=== PATIENT | female | born 1995 | race Caucasian/White ===

== ENCOUNTER 2020-02-27 14:06 | Emergency (ER) | payer SELFPAY ==
[~2020-02-27] VITALS: Ht 162.5 cm; Wt 68.0 kg
[~2020-02-27 14:06] MED LIST: DICY20TA10 PO; MESA10002 RC; PRD20T PO
--- NOTE | 2020-02-27 14:07 | NUR ---
Note sarah in EDM - 02/27/20 at 1420 by PMCCLURE AMB TO ROOM NOTICED ON 02/21 A RED AREA ON HER L LOWER ABD. THAT HAS GOT WORSE. AREA RED SWOLLEN WITH SM PIN SIZE DARK AREA.
--- OUTSIDE RECORDS SUMMARY | 2020-02-27 14:12 | XMS REPORT ---
Author Author Beverley GAMBLE Organization [facility] Address [address] [place] [address] Care Team Providers Care Grounds Caretaker Name Role Phone EDIE GAMBEL Unavailable PROBLEMS Type Condition ICD9-CM Code XRF51-EC Code Onset Dates Condition S tatus SNOMED Code Problem Irritable bowel syndrome with diarrhea K58.0 Active 728475939 Problem Family hx of colon cancer Z80.0 Acti ve 381372970 Problem Lumbosacral radiculopathy M54.17 Acti ve 1042260 ALLERGIES Substance Reaction Event Type Date Status Viibryd diarrhea Drug Allergy Dec, Active ENCOUNTERS Encounter Location Date Diagnosis [address], [place] [id number] Apr, Allergic contact dermatitis, unspecified trigger L23.[address], [place] [id number] Dec, Viral upper respiratory tract infection J06.[address], [place] [id number] Dec, Influenza J11.1 [facility] [address] [address] Oct, Acute gastroenteritis K52.[address], [place] [id number] Aug, Fever, unspecified R50.9 and Acute viral syndrome B34.9 [facility] [address] [address] May, Dental examination Z01.20 [facility] [address] [address] May, Mouth pain K13.[address] [place] [id number] February, Transient heat fatigue, initial encounte r T67.6XXA [facility] [address] [address] Jul, Acute non-recurrent maxillar y sinusitis J01.00 [facility] [id number] [place] [address], [place] [id number] Sep, [facility] [address], [place] [id number] Aug, Irritable bowel syndrome with diarrhea K 58.0 and Family hx of colon cancer Z80.0 [facility] [address] [place] [address] Jul, Urinary tract infection, sit e not specified N39.0 and Hematuria R31.9 [facility] [address] [place] [address] Jul, Pharyngitis, unspecified meg ology J02.9 [facility] [id number] [place] [address], [place] [id number] February, Lumbosacral radiculopathy M54.17 [facility] [id number] [place] [address], [place] [id number] February, Lumbago with sciatica, left side M54.42 and Lumbago with sciatica, right side M54.41 [facility] [id number] [place] [address] Jan, Dental examination Z01.20 [facility] [id number] [place] [id number] Oct, Acute suppurative otitis media of both e ars without spontaneous rupture of tympanic membranes, recurrence not specified H66.003 and Other infective otitis externa of right ear H60.391 [facility] [address] [id number] [place] [id number] Sep, Laceration of wrist, left S61.512A [facility] [address] [id number] [place] [id number] Sep, [facility] [address] [id number] [place] [id number] May, Dysthymic disorder 300.4 [facility] [address] [id number] [place] [id number] Mar, Sciatica 724.3 [facility] [address] [facility] [id number] [address] [place] [address] Jan, [facility] [address] [facility] [id number] [address] [place] [address] Jan, [facility] [address] [facility] [id number] [place] [id number] Oct, [facility] [address] [facility] [id number] [address] [place] [address] Oct, [facility] [address] [id number] [address] [place] [address] Sep, [facility] [address] [id number] [place] [id number] Sep, [facility] [address] [id number] [place] [id number] Aug, [facility] [address] [facility] [id number] [address] [place] [address] Aug, [facility] [address] [facility] [id number] [place] [id number] Jun, [facility] [address] [facility] [id number] [address] [place] [address] Jun, [facility] [address] [facility] [id number] [place] [id number] Jun, [facility] [address] [id number] [address] [place] [address] Jun, IMMUNIZATIONS No Known Immunizations SOCIAL HISTORY Never Assessed REASON FOR VISIT Fever, body aches, coughing starting yesterday Benson RN PLAN OF CARE Activity Details Follow Up prn Reason: VITAL SIGNS Height 64.5 in 2018-12-30 Weight 158.0 lbs 2018-12-30 Temperature 100.4 degrees Fahrenheit 2018-12-30 Heart Rate 100 bpm 2018-12-30 Respiratory Rate 20 2018-12-30 Oximetry 98 % 2018-12-30 BMI 26.70 kg/m2 2018-12-30 Blood pressure systolic 106 mmHg 2018-12-30 Blood pressure diastolic 68 mmHg 2018-12-30 MEDICATIONS Medication Instructions Dosage Frequency Start Date End Date Duration S tatus Tamiflu 75 MG Orally Twice a day 1 capsule 12h Dec, 5 day(s) Active RESULTS No Results PROCEDURES No Known procedures INSTRUCTIONS MEDICATIONS ADMINISTERED No Known Medications MEDICAL (GENERAL) HISTORY Type Description Date Medical History Colitis dx by colonoscopy age 17 Medical History bipolar disorder Medical History IBS Medical History 2017 EGD, reportedly unremarkable Medical History Other ulcerative colitis Medical History Enthesopathy of unspecified site Medical History Sciatica Medical History Dysthymic disorder Surgical History tonsillectomy and adenoidectomy Surgical History Tubes in ears x 4 Hospitalization History surgeries
--- OUTSIDE RECORDS SUMMARY | 2020-02-27 14:12 | XMS REPORT ---
Author Author Beverley SOLIS Organization [facility] Address [address] [place] [address] Care Team Providers Care Manager Education Name Role Phone SOLISWILLIE PATELSHASHA Unavailable PROBLEMS Type Condition ICD9-CM Code GQS22-BE Code Onset Dates Condition S tatus SNOMED Code Problem Pain in joint, forearm 719.43 Active 854719681 Problem Other ulcerative colitis 556.8 Activ e 28001944 Problem Irritable bowel syndrome with diarrhea K58.0 Active 243134691 Problem Family hx of colon cancer Z80.0 Acti ve 201478929 Problem Sciatica 724.3 Active 11389769 Problem Enthesopathy of unspecified site 726.90 Active 73142379 Problem Lumbosacral radiculopathy M54.17 Acti ve 9878073 Problem Dysthymic disorder 300.4 Active 7 0240387 ALLERGIES Substance Reaction Event Type Date Status Viibryd diarrhea Drug Allergy May, Active ENCOUNTERS Encounter Location Date Diagnosis [facility] [id number] [address] [place] [address] May, Dental examination Z01.20 [facility] [address] [id number] [address] [place] [address] May, Mouth pain K13.79 [facility] [address] [id number] [place] [id number] February, Transient heat fatigue, initial encounte r T67.6XXA [facility] [address] [facility] [id number] [address] [place] [address] Jul, Acute non-recurrent maxillar y sinusitis J01.00 [facility] [address] [id number] [place] [id number] Sep, [facility] [id number] [place] [address], [place] [id number] Aug, Irritable bowel syndrome with diarrhea K 58.0 and Family hx of colon cancer Z80.0 [facility] [address] [address] Jul, Urinary tract infection, sit e not specified N39.0 and Hematuria R31.9 [facility] [address] [address] Jul, Pharyngitis, unspecified meg ology J02.9 [facility] [id number] [place] [address], [place] [id number] February, Lumbosacral radiculopathy M54.17 [facility] [address], [place] [id number] February, Lumbago with sciatica, left side M54.42 and Lumbago with sciatica, right side M54.41 [facility] [address] [address] Jan, Dental examination Z01.20 [place] [id number] [place] [address], [place] [id number] Oct, Acute suppurative otitis media of both e ars without spontaneous rupture of tympanic membranes, recurrence not specified H66.003 and Other infective otitis externa of right ear H60.391 [facility] [id number] [place] [address], [place] [id number] Sep, Laceration of wrist, left S61.512A [facility] [id number] [place] [address], [place] [id number] Sep, [place] [address], [place] [id number] May, Dysthymic disorder 300.4 [facility] [address], [place] [id number] Mar, Sciatica 724.3 [facility] [address] [address] Jan, [facility] [address] [id number] [address] [place] [address] Jan, [facility] [address] [id number] [place] [id number] Oct, [facility] [address] [id number] [address] [place] [address] Oct, [facility] [address] [id number] [address] [place] [phone] Sep, [facility] [address] [id number] [place] [id number] Sep, [facility] [address] [id number] [place] [id number] Aug, [facility] [address] [id number] [address] [place] [address] Aug, [facility] [address] [id number] [place] [id number] Jun, [facility] [address] [id number] [address] [place] [phone] Jun, [facility] [address] [id number] [place] [id number] Jun, [facility] [address] [id number] [address] [place] [phone] Jun, IMMUNIZATIONS No Known Immunizations SOCIAL HISTORY Never Assessed REASON FOR VISIT pain referral from walk-in PLAN OF CARE Activity Details Follow Up prn Reason: VITAL SIGNS Height 64.5 in 2018-06-20 Blood pressure systolic 98 mmHg 2018-06-20 Blood pressure diastolic 62 mmHg 2018-06-20 MEDICATIONS No Known Medications RESULTS No Results PROCEDURES Procedure Date Ordered Result Body Site INTRAORL-PERIAPICAL 1 FILM 32241 Jun 20, 2018 BITEWING - SINGLE FILM Jun 20, 2018 Billing Notes on claim Jun 20, 2018 SCREENING OF A PATIENT Jun 20, 2018 INSTRUCTIONS MEDICATIONS ADMINISTERED No Known Medications MEDICAL (GENERAL) HISTORY Type Description Date Medical History Colitis dx by colonoscopy age 17 Medical History bipolar disorder Medical History IBS Surgical History tonsillectomy and adenoidectomy Surgical History Tubes in ears x 4 Hospitalization History surgeries
--- OUTSIDE RECORDS SUMMARY | 2020-02-27 14:12 | XMS REPORT ---
Author Author Beverley GAMBLE Organization [facility] Address [address] [place] [address] Care Team Providers Care Emergency Management Program Specialist Name Role Phone EDIE GAMBLE Unavailable PROBLEMS Type Condition ICD9-CM Code GDT65-HQ Code Onset Dates Condition S tatus SNOMED Code Problem Family hx of colon cancer Z80.0 Acti ve 767194462 Problem Irritable bowel syndrome with diarrhea K58.0 Active 667821840 Problem Lumbosacral radiculopathy M54.17 Acti ve 8580910 ALLERGIES No Information ENCOUNTERS Encounter Location Date Diagnosis [address], [place] [id number] Apr, Allergic contact dermatitis, unspecified trigger L23.9 [facility] [address], [place] [id number] Dec, Viral upper respiratory tract infection J06.[address], [place] [id number] Dec, Influenza J11.1 [facility] [address] [address] Oct, Acute gastroenteritis K52.[address], [place] [id number] Aug, Fever, unspecified R50.9 and Acute viral syndrome B34.9 [facility] [address] [id number] [address] [place] [phone] May, Dental examination Z01.20 [facility] [address] [id number] [address] [place] [address] May, Mouth pain K13.79 [facility] [address], [place] [id number] February, Transient heat fatigue, initial encounte r T67.6XXA [facility] [address] [id number] [address] [place] [address] Jul, Acute non-recurrent maxillar y sinusitis J01.00 [facility] [address] [facility] [id number] [place] [id number] Sep, [facility] [address], [place] [id number] Aug, Irritable bowel syndrome with diarrhea K 58.0 and Family hx of colon cancer Z80.0 [facility] [address] [phone] Jul, Urinary tract infection, sit e not specified N39.0 and Hematuria R31.9 [facility] [address] [id number] [address] [place] [address] Jul, Pharyngitis, unspecified meg ology J02.9 [facility] [id number] [place] [address], [place] [id number] February, Lumbosacral radiculopathy M54.17 [facility] [address], [place] [id number] February, Lumbago with sciatica, left side M54.42 and Lumbago with sciatica, right side M54.41 [facility] [address] [facility] [id number] [address] [place] [phone] Jan, Dental examination Z01.20 [facility] [id number] [place] [address], [place] [id number] Oct, Acute suppurative otitis media of both e ars without spontaneous rupture of tympanic membranes, recurrence not specified H66.003 and Other infective otitis externa of right ear H60.391 [facility] [address] [id number] [place] [id number] Sep, Laceration of wrist, left S61.512A [facility] [id number] [place] [address], [place] [id number] Sep, [facility] [address] [id number] [place] [id number] May, Dysthymic disorder 300.4 [facility] [address] [id number] [place] [id number] Mar, Sciatica 724.3 [facility] [address] [facility] [id number] [address] [place] [phone] Jan, [facility] [address] [facility] [id number] [address] [place] [phone] Jan, [facility] [address] [id number] [place] [id number] Oct, [facility] [address] [facility] [id number] [address] [place] [phone] Oct, [facility] [address] [facility] [id number] [address] [place] [phone] Sep, [facility] [address] [id number] [place] [id number] Sep, [facility] [address] [id number] [place] [id number] Aug, [facility] [address] [facility] [id number] [address] [place] [phone] Aug, [facility] [address] [id number] [place] [id number] Jun, [facility] [address] [facility] [id number] [address] [place] [phone] Jun, [facility] [address] [id number] [place] [id number] Jun, [facility] [address] [facility] [id number] [address] [place] [phone] Jun, IMMUNIZATIONS No Known Immunizations SOCIAL HISTORY Never Assessed REASON FOR VISIT PLAN OF CARE VITAL SIGNS Height 64.5 in 2014-07-06 Weight 143.31 lbs 2014-07-06 Temperature 98 degrees Fahrenheit 2014-07-06 Heart Rate 76 bpm 2014-07-06 Respiratory Rate 10 2014-07-06 Blood pressure systolic 90 mmHg 2014-07-06 Blood pressure diastolic 60 mmHg 2014-07-06 MEDICATIONS No Known Medications RESULTS No Results PROCEDURES Procedure Date Ordered Result Body Site X-RAY EXAM OF WRIST Jul 06, 2014 X-RAY EXAM OF FOREARM Jul 06, 2014 INSTRUCTIONS MEDICATIONS ADMINISTERED No Known Medications MEDICAL (GENERAL) HISTORY Type Description Date Medical History Colitis dx by colonoscopy age 17 Medical History bipolar disorder Medical History IBS Medical History 2016 EGD, reportedly unremarkable Medical History Other ulcerative colitis Medical History Enthesopathy of unspecified site Medical History Sciatica Medical History Dysthymic disorder Surgical History tonsillectomy and adenoidectomy Surgical History Tubes in ears x 4 Hospitalization History surgeries
--- OUTSIDE RECORDS SUMMARY | 2020-02-27 14:12 | XMS REPORT ---
Author Author Beverley Rose Organization [facility] Address [address] [place] [address] Care Team Providers Care Golf Superintendent Name Role Phone SHANTELL Rose Unavailable PROBLEMS Type Condition ICD9-CM Code UMT42-CS Code Onset Dates Condition S tatus SNOMED Code Problem Family hx of colon cancer Z80.0 Acti ve 834536328 Problem Irritable bowel syndrome with diarrhea K58.0 Active 227828346 Problem Lumbosacral radiculopathy M54.17 Acti ve 7731858 ALLERGIES No Information ENCOUNTERS Encounter Location Date Diagnosis [address], [place] [id number] Apr, Allergic contact dermatitis, unspecified trigger L23.[address], [place] [id number] Dec, Viral upper respiratory tract infection J06.[address], [place] [id number] Dec, Influenza J11.1 [facility] [address] [address] Oct, Acute gastroenteritis K52.[address], [place] [id number] Aug, Fever, unspecified R50.9 and Acute viral syndrome B34.9 [facility] [address] [address] May, Dental examination Z01.20 [facility] [address] [id number] [address] [place] [address] May, Mouth pain K13.[address], [place] [id number] February, Transient heat fatigue, initial encounte r T67.6XXA [facility] [address] [address] Jul, Acute non-recurrent maxillar y sinusitis J01.00 [facility] [address] [id number] [place] [id number] Sep, [facility] [address], [place] [id number] Aug, Irritable bowel syndrome with diarrhea K 58.0 and Family hx of colon cancer Z80.0 [facility] [address] [address] Jul, Urinary tract infection, sit e not specified N39.0 and Hematuria R31.9 [facility] [address] [address] Jul, Pharyngitis, unspecified meg ology J02.9 [facility] [address] [id number] [place] [id number] February, Lumbosacral radiculopathy M54.17 [facility] [id number] [place] [address], [place] [id number] February, Lumbago with sciatica, left side M54.42 and Lumbago with sciatica, right side M54.41 [facility] [address] [id number] [address] [place] [address] Jan, Dental examination Z01.20 [facility] [address] [id number] [place] [id number] Oct, Acute suppurative otitis media of both e ars without spontaneous rupture of tympanic membranes, recurrence not specified H66.003 and Other infective otitis externa of right ear H60.391 [facility] [address] [id number] [place] [id number] Sep, Laceration of wrist, left S61.512A [facility] [address] [id number] [place] [id number] Sep, [facility] [place] [address] [id number] [place] [id number] May, Dysthymic disorder 300.4 [facility] [place] [address] [id number] [place] [id number] Mar, Sciatica 724.3 [facility] [address] [facility] [id number] [address] [place] [address] Jan, [facility] [address] [facility] [id number] [address] [place] [phone] Jan, [facility] [address] [id number] [place] [id number] Oct, [facility] [address] [facility] [id number] [address] [place] [phone] Oct, [facility] [address] [facility] [id number] [address] [place] [phone] Sep, [facility] [address] [id number] [place] [id number] Sep, [facility] [address] [id number] [place] [id number] Aug, [facility] [address] [facility] [id number] [address] [place] [phone] Aug, [facility] [address] [facility] [id number] [place] [id number] Jun, [facility] [address] [facility] [id number] [address] [place] [phone] Jun, [facility] [address] [facility] [id number] [place] [id number] Jun, [facility] [address] [facility] [id number] [address] [place] [address] Jun, IMMUNIZATIONS No Known Immunizations SOCIAL HISTORY Never Assessed REASON FOR VISIT PLAN OF CARE VITAL SIGNS Height 64.5 in 2014-07-07 Weight 143 lbs 2014-07-07 Temperature 97.9 degrees Fahrenheit 2014-07-07 Heart Rate 88 bpm 2014-07-07 Respiratory Rate 20 2014-07-07 Blood pressure systolic 114 mmHg 2014-07-07 Blood pressure diastolic 76 mmHg 2014-07-07 MEDICATIONS No Known Medications RESULTS No Results PROCEDURES No Known procedures [...]
--- OUTSIDE RECORDS SUMMARY | 2020-02-27 14:12 | XMS REPORT ---
Author Author Beverley Nichols Doctor Organization [facility] Address Unknown Phone Unavailable Care Team Providers Care Dental Equipment Mechanic Name Role Phone Migration, Doctor Unavailable Unavailable PROBLEMS Type Condition ICD9-CM Code [id number] Code Onset Dates Condition S tatus SNOMED Code Problem Other ulcerative colitis 556.8 Activ e 11988845 Problem Pain in joint, forearm 719.43 Active 913821245 Problem Family hx of colon cancer Z80.0 Acti ve 536813301 Problem Irritable bowel syndrome with diarrhea K58.0 Active 127623022 Problem Enthesopathy of unspecified site 726.90 Active 39235573 Problem Sciatica 724.3 Active 27045192 Problem Dysthymic disorder 300.4 Active 7 3157378 Problem Lumbosacral radiculopathy M54.17 Acti ve [id number] ALLERGIES No Information ENCOUNTERS Encounter Location Date Diagnosis [place] [id number] [place] [address], [place] [id number] Dec, Viral upper respiratory tract infection J06.[address], [place] [id number] Dec, Influenza J11.1 [facility] [address] [address] Oct, Acute gastroenteritis K52.9 [place] [id number] [place] [address], [place] [id number] Aug, Fever, unspecified R50.9 and Acute viral syndrome B34.9 [facility] [address] [address] May, Dental examination Z01.20 [facility] [address] [place] [id number] [place] [phone] May, Mouth pain K13.79 [facility] [address], [place] [id number] February, Transient heat fatigue, initial encounte r T67.6XXA [facility] [address] [address] Jul, Acute non-recurrent maxillar y sinusitis J01.00 [facility] [address] [id number] [place] [id number] Sep, [facility] [address], [place] [id number] Aug, Irritable bowel syndrome with diarrhea K 58.0 and Family hx of colon cancer Z80.0 [facility] [address] [address] Jul, Urinary tract infection, sit e not specified N39.0 and Hematuria R31.9 [facility] [address] [address] Jul, Pharyngitis, unspecified meg ology J02.9 [facility] [address] [place] [id number] [place] [address], [place] [id number] February, Lumbosacral radiculopathy M54.17 [facility] [address] [id number] [place] [address], [place] [id number] February, Lumbago with sciatica, left side M54.42 and Lumbago with sciatica, right side M54.41 [facility] [address] [place] [id number] [place] [phone] Jan, Dental examination Z01.20 [facility] [address] [id number] [place] [id number] Oct, Acute suppurative otitis media of both e ars without spontaneous rupture of tympanic membranes, recurrence not specified H66.003 and Other infective otitis externa of right ear H60.391 [facility] [address] [id number] [place] [id number] Sep, Laceration of wrist, left S61.512A [facility] [address] [place] [id number] [place] [address], [place] [id number] Sep, [facility] [address] [facility] [id number] [place] [id number] May, Dysthymic disorder 300.4 [facility] [address] [facility] [id number] [place] [id number] Mar, Sciatica 724.3 [facility] [address] [facility] [id number] [address] [place] [phone] Jan, [facility] [address] [facility] [id number] [address] [place] [phone] Jan, [facility] [address] [facility] [id number] [place] [id number] Oct, [facility] [address] [facility] [id number] [address] [place] [phone] Oct, [facility] [address] [place] [id number] [place] [phone] Sep, [facility] [address] [facility] [id number] [place] [id number] Sep, [facility] [address] [facility] [id number] [place] [id number] Aug, [facility] [address] [facility] [id number] [address] [place] [phone] Aug, [facility] [address] [facility] [id number] [place] [id number] Jun, [facility] [address] [facility] [id number] [address] [place] [phone] Jun, [facility] [address] [facility] [id number] [place] [id number] Jun, [facility] [address] [place] [id number] [place] [phone] Jun, IMMUNIZATIONS No Known Immunizations SOCIAL HISTORY Never Assessed REASON FOR VISIT [place] VITAL SIGNS MEDICATIONS Medication Instructions Dosage Frequency Start Date End Date Duration S sharyn Sulfasalazine 500 mg 1 tablet by Oral ro inez 4 times per day 2 tabs daily x 7 days, then increas to 4 times daily Sep, Active RESULTS No Results PROCEDURES No Known procedures INSTRUCTIONS MEDICATIONS ADMINISTERED No Known Medications MEDICAL (GENERAL) HISTORY Type Description Date Medical History Colitis dx by colonoscopy age 17 Medical History bipolar disorder Medical History IBS Medical History 2016 EGD, reportedly unremarkable Surgical History tonsillectomy and adenoidectomy Surgical History Tubes in ears x 4 Hospitalization History surgeries
--- OUTSIDE RECORDS SUMMARY | 2020-02-27 14:12 | XMS REPORT ---
Author Author Beverley Nichols Doctor Organization [facility] Address Unknown Phone Unavailable Care Team Providers Care Respiratory Therapy Assistant Name Role Phone Migration, Doctor Unavailable Unavailable PROBLEMS Type Condition ICD9-CM Code RLD53-PI Code Onset Dates Condition S tatus SNOMED Code Problem Family hx of colon cancer Z80.0 Acti ve 874722479 Problem Irritable bowel syndrome with diarrhea K58.0 Active 839330695 Problem Lumbosacral radiculopathy M54.17 Acti ve [id number] ALLERGIES No Information ENCOUNTERS Encounter Location Date Diagnosis [address], [place] [id number] Apr, Allergic contact dermatitis, unspecified trigger L23.[address], [place] [id number] Dec, Viral upper respiratory tract infection J06.[address], [place] [id number] Dec, Influenza J11.1 [facility] [address] [place] [phone] Oct, Acute gastroenteritis K52.[address], [place] [id number] Aug, Fever, unspecified R50.9 and Acute viral syndrome B34.9 [facility] [address] [address] May, Dental examination Z01.20 [facility] [address] [address] May, Mouth pain K13.[address], [place] [id number] February, Transient heat fatigue, initial encounte r T67.6XXA [facility] [address] [facility] [id number] [address] [place] [id number] Jul, Acute non-recurrent maxillar y sinusitis J01.00 [facility] [address] [place] [id number] [place] [address], [place] [id number] Sep, [facility] [address] [facility] [id number] [place] [id number] Aug, Irritable bowel syndrome with diarrhea K 58.0 and Family hx of colon cancer Z80.0 [facility] [address] [id number] Jul, Urinary tract infection, sit e not specified N39.0 and Hematuria R31.9 [facility] [address] [facility] [id number] [address] [place] [phone] Jul, Pharyngitis, unspecified meg ology J02.9 [facility] [address], [place] [id number] February, Lumbosacral radiculopathy M54.17 [facility] [address], [place] [id number] February, Lumbago with sciatica, left side M54.42 and Lumbago with sciatica, right side M54.41 [facility] [address] [place] [id number] [address] [place] [phone] Jan, Dental examination Z01.20 [facility] [address] [place] [id number] [place] [address], [place] [id number] Oct, Acute suppurative otitis media of both e ars without spontaneous rupture of tympanic membranes, recurrence not specified H66.003 and Other infective otitis externa of right ear H60.391 [facility] [address] [place] [id number] [place] [address], [place] [id number] Sep, Laceration of wrist, left S61.512A [facility] [address] [id number] [place] [id number] Sep, [facility] [address], [place] [id number] May, Dysthymic disorder 300.4 [facility] [address] [facility] [id number] [place] [id number] Mar, Sciatica 724.3 [facility] [address] [facility] [id number] [address] [place] [phone] Jan, [facility] [address] [facility] [id number] [address] [place] [phone] Jan, [facility] [address] [facility] [id number] [place] [id number] Oct, [facility] [address] [facility] [id number] [address] [place] [phone] Oct, [facility] [address] [facility] [id number] [address] [place] [phone] Sep, [facility] [address] [facility] [id number] [place] [id number] Sep, [facility] [address] [facility] [id number] [place] [id number] Aug, [facility] [address] [facility] [id number] [address] [place] [phone] Aug, [facility] [address] [facility] [id number] [place] [id number] Jun, [facility] [address] [facility] [id number] [address] [place] [phone] Jun, [facility] 120 [facility] [id number] [place] [id number] Jun, [facility] [address] [facility] [id number] [address] [place] [phone] Jun, IMMUNIZATIONS No Known Immunizations SOCIAL HISTORY Never Assessed REASON FOR VISIT PLAN OF CARE VITAL SIGNS MEDICATIONS No Known Medications RESULTS No Results PROCEDURES No Known procedures INSTRUCTIONS MEDICATIONS ADMINISTERED No Known Medications MEDICAL (GENERAL) HISTORY Type Description Date Medical History Colitis dx by colonoscopy age 17 Medical History bipolar disorder Medical History IBS Medical History 2017 EGD, reportedly unremarkable Medical History Other ulcerative colitis Medical History Other ulcerative colitis Medical History Enthesopathy of unspecified site Medical History Sciatica Medical History Dysthymic disorder Surgical History tonsillectomy and adenoidectomy Surgical History Tubes in ears x 4 Hospitalization History surgeries
--- OUTSIDE RECORDS SUMMARY | 2020-02-27 14:12 | XMS REPORT ---
Author Author [employer]. Organization [employer] Address [address] [address] Care Team Providers Care Fruit [employer] Farm Manager Name Role Phone EDIE GAMBLE Unavailable [facility] Unavailable LENNOX CANTU Unavailable Unavailable EDIE GAMBLE Unavailable Unavailable EDIE GAMBLE Unavailable EDIE GAMBLE Unavailable SHASHA SOLIS Unavailable EVARISTO GARRIDO Unavailable Migration, Doctor Unavailable Unavailable Migration, Doctor Unavailable Unavailable EDIE GAMBLE Unavailable Unavailable EDIE GAMBLE Unavailable SHANTELL Rose Unavailable EDIE GAMBLE Unavailable SHANTELL Rose Unavailable Migration, Doctor Unavailable Unavailable NIKOLE HICKMAN Unavailable Unavailable Unavailable Allergies The data below is from unstructured sourcesNo known allergies.No Known Allergies No Known Allergies Unknown Allergies Unknown Allergies No Information No Information No Information No Information No Information No Information No Information No Information No Information No Information No Information No Information Medications Medication Ingredient Drug Dose Dates Status Sig Sig Care Class(es) (Normalized) (Original) Provid er amoxicillin amoxicillin Penicillin- 500 mg 06-20-20 Active no Amoxicillin no 500 mg oral Translation class 18 - information 500 mg name capsule (1 s: [ Antibacteri 06-27-20 Orally every (no source.) Amoxicillin al 18 8 hrs 1 phone) 500 mg] capsule 8h May, May, 07 days Active cetirizine Cetirizine Histamine-1 10 mg 01-14-20 Active take 1 Zyrtec no hydrochlori Translation Receptor 19 tablet by Allergy 10 name de 10 mg s: [ Zyrtec Antagonist mouth once mg Orally (no oral tablet Allergy 10 daily Once a day 1 phone) (1 source.) mg] tablet 24h 19 Dec, 2018 30 day(s) Active oseltamivir Oseltamivir Neuraminida 75 mg 12-31-19 Active take 1 Tamiflu 75 no 75 mg oral Translation se 19 capsule by MG Orally n denny capsule (1 s: [ Inhibitor mouth twice Twice a day (no source.) Tamiflu 75 daily 1 capsule phone) MG] 12h Dec, 5 day(s) Active sulfaSALAzi sulfaSALAzi Aminosalicy 500 mg 10-01-20 Active no Sulfasalazin no ne 500 mg ne late 14 information e 500 mg 1 nam e oral tablet tablet by (no (1 source.) Oral route 4 phone) times per day 2 tabs daily x 7 days, then increas to 4 times daily Sep, Active Problems Problem Normalized Date of Normalized Normalized Provider Fac ility Classification Problem(s) Problem Problem Problem Sta tus Onset/Resoluti Duration on Other upper Acute Episodic Active [facility] respiratory maxillary [facility] infections (20 sinusitis, of [place] sources.) unspecified [place] ([address]) Translations: [ - Acute non-recurrent maxillary sinusitis J01.00, - Pharyngitis, unspecified etiology J02.9, - Acute non-recurrent maxillary sinusitis J01.00, - Pharyngitis, unspecified etiology J02.9, - Viral upper respiratory tract infection J06.9] Disorders of Encounter for Episodic Active [facility] teeth and jaw dental [address] [facility] (1 source.) examination of [facility] and [facility] ([address]) without abnormal findings Translations: [ - Dental examination Z01.20] Other Enthesopathy Episodic Active EVARISTO GARRIDO [facility] ity connective Translations: [address] [facility] tissue disease [ Enthesopathy of [facility] (4 sources.) of unspecified [place] ([address]796) site, Enthesopathy of unspecified site] Residual Family history Episodic Active Doctor [facility] ty codes; of malignant [facility] unclassified neoplasm of of [facility] (8 sources.) digestive [place] ([address]004) organs Translations: [ - Family hx of colon cancer Z80.0] Fever of Fever, Episodic Active Doctor Community unknown origin unspecified Migration [facility] (8 sources.) Translations: of [facility] [ - Fever, [place] ([address]246) unspecified R50.9] Other injuries Heat fatigue, Episodic Active [facility] and conditions transient, [address] [place] [address] Center due to initial of [facility] external encounter [place] ([address]) causes (11 Translations: sources.) [ - Transient heat fatigue, initial encounter T67.6XXA, - Transient heat fatigue, initial encounter T67.6XXA] Genitourinary Hematuria, Episodic Active [facility] mmunity symptoms and unspecified [address] [place] [address] ill-defined Translations: of [facility] conditions (12 [ - Hematuria [place] (43662) sources.) R31.9, - Hematuria R31.9, - Blood in urine R31.9] Influenza (8 Influenza due Episodic Active Doctor Commu nity sources.) to [facility] unidentified of [facility] influenza [place] ([address]94) virus with other respiratory manifestations Translations: [ - Influenza J11.1] Noninfectious Noninfective Episodic Active Doctor Commu nity gastroenteriti gastroenteriti [facility] s (8 sources.) s and colitis, of [facility] unspecified [place] ([address]010) Translations: [ - Acute gastroenteriti s K52.9] Diseases of Other lesions Episodic Active [facility] GARRIDO Com [facility] mouth; of oral mucosa [id number] [place] [address] excluding Translations: of [facility] dental (10 [ - Mouth pain [place] (81388) sources.) K13.79, - Mouth pain K13.79] Urinary tract Urinary tract Episodic Active [facility] infections (12 infection, [id number] [place] [address] Center sources.) site not of [facility] specified [place] ([address]64) Translations: [ - Urinary tract infection, site not specified N39.0, - Urinary tract infection, site not specified N39.0] Viral Viral Episodic Active Doctor [facility] infection (8 infection, [facility] sources.) unspecified of [facility] Translations: [place] ([address]67) [ - Acute viral syndrome B34.9] Procedures Procedure Normalized Procedure Procedure Result Performer Facility Date 06-20-2018 Billing Notes on claim no information no name (no p roseann) [facility] (49397) 06-20-2018 Dental bitewing single no information no name (no p roseann) [facility] (54330) 06-20-2018 Intraoral periapical no information no name (no marisol ne) [facility] (56668) 07-06-2014 Radex forearm 2 views no information no name (no ph one) [facility] (49773) 07-06-2014 Radex wrist 2 views no information no name (no phon e) [facility] (74263) 06-20-2018 Screening of a patient no information no name (no p roseann) [facility] (55522) Immunizations The data below is from unstructured sources No Known ImmunizationsNo immunization records.No immunization records. No Known Immunizations No Known Immunizations No Known Immunizations No Known Immunizations No Known Immunizations No Known Immunizations No Known Immunizations No Known Immunizations No Known Immunizations No Known Immunizations No Known Immunizations No Known Immunizations No Known Immunizations No Known Immunizations No Known Immunizations No Known Immunizations No Known Immunizations No Known Immunizations No Known Immunizations No Known Immunizations No Known Immunizations No Known Immunizations No Known Immunizations No Known Immunizations Results Test Name Value Interpretation Reference Range Date Time Fa cility (Normalized) (Normalized) (Medline Reference) No panel information on null Control no information (no code) [facility] ([id number]) Exp date 08/2018 (no code) [facility] (26736) Lot # [id number] (no code) [facility] (10359) No panel information on 2019-12-25 Bacteria SEE NOTE (A) [facility] identified Cx [facility] Nom (U) [facility] (47449) BLO 3+ (no code) [facility] (75786) KET 2021-01~cloudy~p (no code) [facility] ink~none~negativ [facility] e~negative~negat [facility] mariella (69529) NELY no information (no code) [facility] (21201) Lot # [id number] (no code) [facility] (45006) pH (Bld) 6.0 [pH] (no code) 7.38 - 7.42 [pH] Communit y [facility] (16466) Protein (U) 2+ (no code) [facility] [Mass/Vol] [facility] (84434) SG 1.010 (no code) [facility] (17361) URO 0.2 (no code) [facility] (03333) No panel information on 2018-09-02 Control no information (no code) [facility] (36313) Exp date 02/18/21 (no code) [facility] (34181) Exp date 08/03/20 (no code) [facility] (60355) Lot # [id number] (no code) [facility] (94507) Lot # [id number] (no code) [facility] (33434) Vital Signs Vital Sign Value Interpretation Reference Date Time Care [facility] ider Facility (Normalized) (Normalized) Range BMI (Body Mass 26.7 kg/m2 (no code) 15 - 25 kg/m2 12-30-2018 DONOVAN COLLAZOS Community Index) 15:20-0500 07302 [facility] (84867) BMI (Body Mass 25.18 kg/m2 (no code) 15 - 25 kg/m2 06-20-2018 Suki GARRIDO Community Index) 14:10-0400 71259 [facility] (04327) BMI (Body Mass 25.92 kg/m2 (no code) 15 - 25 kg/m2 03-04-2018 Benito GAMBLE Community Index) 15:40-0400 87665 [facility] (83896) Body height 163.83 cm (no code) cm 01-13-2019 NIKOLE HICKMAN Community 13:40-0400 62006 [facility] (63634) Body mass 26.36 kg/m2 (no code) 15 - 25 kg/m2 01-13-2019 NIKOLE RAMIREZ Community index (BMI) 13:40-0400 20395 [facility] [Ratio] [facility] (39122) Body 98.2 [degF] (no code) 97.8 - 99.0 01-13-2019 NIKOLE SANDOVAL N [facility] temperature [degF] 13:40-[address] [facility] (40274) Body 100.4 [degF] (no code) 97.8 - 99.0 12-30-2018 EDIE RODRIGUEZ [facility] Temperature [degF] 15:20-0500 73994 [facility] (09774) Body 97.6 [degF] (no code) 97.8 - 99.0 06-20-2018 EVARISTO MENDOZA [facility] Temperature [degF] 14:10-0400 17463 [facility] (08120) Body 97.6 [degF] (no code) 97.8 - 99.0 03-04-2018 EDIE ROSE [facility] Temperature [degF] 15:40-0400 94041 [facility] (37887) Body 97.7 [degF] (no code) 97.8 - 99.0 10-01-2014 [facility] Temperature [degF] 08:55-[address] ([address]363) Body 97.9 [degF] (no code) 97.8 - 99.0 07-07-2014 [facility] Temperature [degF] 10:24-[address] (31231) Body 98 [degF] (no code) 97.8 - 99.0 07-06-2014 EDIE BURTON [facility] Temperature [degF] 14:34-[address] [facility] (46095) Body weight 70.76 kg (no code) kg 01-13-2019 NIKOLEDedra ORTEZON [facility] 13:40-0400 47724 [facility] (74757) Body weight 71.67 kg (no code) kg 12-30-2018 EDIE La [facility] 15:20-0500 78876 [facility] (06816) Body weight 64.86 kg (no code) kg 10-01-2014 SHANTELL Com munity 08:55-0500 [facility] [address] of [facility] (07449) Body weight 64.86 kg (no code) kg 07-07-2014 SHANTELL Com munity 10:24-0400 [facility] 65717 of [facility] (03713) Body weight 65.01 kg (no code) kg 07-06-2014 [facility] 14:34-[address] [place] [address] (04878) Height 163.83 cm (no code) cm 12-30-2018 [facility] 15:20-[address] [place] [address] (77556) Height 163.83 cm (no code) cm 06-20-2018 EVARISTO jones 14:45-[id number] [place] [address] (80198) Height 163.83 cm (no code) cm 03-04-2018 [facility] 15:40-[address] [place] [address] (39597) Height 163.83 cm (no code) cm 10-01-2014 SHANTELL Commu nity 08:55-0500 [place] [id number] of [facility] (90124) Height 163.83 cm (no code) cm 07-07-2014 SHANTELL Commu nity 10:240400 [place] [address] of [facility] (04462) Height 163.83 cm (no code) cm 07-06-2014 [facility] 14:34-[address] [place] [address] (10866) Oxygen 96 % (no code) 95 - 100 % 01-13-2019 NIKOLE jones saturation in 13:40-[address] [place] [address] Arterial blood [facility] by Pulse [place] (37417) oximetry Pulse Oximetry 98 % (no code) 95 - 100 % 12-30-2018 [facility] 15:200500 [address] [place] [address] ([id number]) Weight 67.59 kg (no code) kg 06-20-2018 EVARISTO GARRIDO Dc mmunity 14:47-6973 34513 [facility] (13219) Weight 69.58 kg (no code) kg 03-04-2018 EDIE GAMBLE [facility] 15:400400 86186 [facility] (36398) Interventions No Information Plan of Treatment The data below is from unstructured sources Discharge Date 10/16/16 12:55pm Instructions/Education Provided COLO NOSCOPY Prescriptions See Medication Section Activity Details Follow Up prn Reason: Activity Details Follow Up w/ dental Reason:mouth mehul n Activity Details Follow Up prn Reason: Goals No Information Social History No Information Functional Status The data below is from unstructured sourcesNo functional status results. Mental Status No Information Encounters Encounter Normalized Encounter Encounter Diagnosis Care Provi karly Organization Date Type 04-27-2019 (ACUTE) Acute Visit Allergic contact NIKOLE HICKMAN (n o phone) [employer] [facility] (no - dermatitis, phone) 04-27-2019 unspecified cause - 04-27-2019 01-13-2019 (ACUTE) Acute Visit Acute upper NIKOLEDedra HICKMAN (no marisol ne) [employer] [facility] (no - respiratory infection, phone) 01-13-2019 unspecified - 01-13-2019 12-30-2018 (ACUTE) Acute Visit Influenza due to EDIE GAMBLE (no [facility] (no - unidentified influenza phone) phone) 12-30-2018 virus with other - respiratory 12-30-2018 manifestations 11-16-2015 (ACUTE) Acute Visit Acute suppurative EDIE La (no [facility] (no - otitis media without phone) phone) 11-16-2015 spontaneous rupture of - ear drum, bilateral 11-16-2015 10-25-2015 (ACUTE) Acute Visit Laceration without LENNOX GILMOR E CASHANNAMARIE [facility] (no - foreign body of left (no phone) LENNOX phone) 10-25-2015 wrist, initial ZAryGIPREMA MENJIVAR ( no - encounter phone) 10-25-2015 03-22-2016 ([facility]) Chronic Health Radiculopathy, EDIE GAMBLE (no [facility] (no - Maintenance lumbosacral region phone) phone) 03-22-2016 - 03-22-2016 03-08-2016 ([facility]) Chronic Health Lumbago with sciatica, EDIE GAMBLE (no [facility] (no - Maintenance left side phone) phone) 03-08-2016 - 03-08-2016 06-20-2018 (D-INT DENT) DENTAL Encounter for dental SHASHA SOLIS ([facility] [place] INTEGRATED VISIT examination and phone) (no p roseann) 06-20-2018 cleaning without - abnormal findings 06-20-2018 01-31-2016 (D-PAIN/MEJIA) Pain/MEJIA Encounter for dental JASMINE Montoya (no [facility] - examination and phone) (no phone) 01-31-2016 cleaning without - abnormal findings 01-31-2016 06-21-2015 (ESTAB) Establish Care Dysthymic disorder EDIE RODRIGUEZ (no [facility] (no - phone) phone) 06-21-2015 - 06-21-2015 09-12-2016 (HOSP F/U) Hospital Irritable bowel EDIE GAMBLE (no [facility] (no - Follow-up syndrome with diarrhea phone) marisol ne) 09-12-2016 - 09-12-2016 03-31-2015 (HOSP F/U) Hospital Sciatica EDIE SOTOBES (no [facility] (no - Follow-up phone) phone) 03-31-2015 - 03-31-2015 09-02-2018 (SD) Same Day Fever, unspecified EDIE GAMBLE (no [facility] (no - phone) phone) 09-02-2018 - 09-02-2018 03-04-2018 (SD) Same Day Heat fatigue, EDIE GAMBLE (no [facility] (no - transient, initial phone) phone) 03-04-2018 encounter - 03-04-2018 11-04-2018 (WALK-IN) Walk-In Care Noninfective BRITTANIE LANG ( no [facility] - gastroenteritis and phone) CARE (no p roseann) 11-04-2018 colitis, unspecified - 11-04-2018 06-20-2018 (WALK-IN) Walk-In Care Other lesions of oral EVARISTO GARRIDO (no [facility] - mucosa phone) CARE (no phone) 06-20-2018 - 06-20-2018 07-31-2017 (WALK-IN) Walk-In Care Acute maxillary ABDI NATO (no [facility] - sinusitis, unspecified phone) CARE (n o phone) 07-31-2017 - 07-31-2017 08-21-2016 (WALK-IN) Walk-In Care Urinary tract JEFFREY Álvarez (no [facility] - infection, site not phone) CARE (no p roseann) 08-21-2016 specified - 08-21-2016 08-09-2016 (WALK-IN) Walk-In Care Acute pharyngitis, TATI AGUERO (no [facility] - unspecified phone) TATI CARE (no phone) 08-09-2016 Ricky (no phone) - TATI García (no 08-09-2016 phone) 10-16-2016 [facility] no information EDIE GAMBLE (no [facility] (no - phone) phone) 10-16-2016 - 10-16-2016 10-19-2015 [facility] no information EDIE GAMBLE (no [facility] (no - phone) phone) 10-19-2015 - 10-19-2015 10-29-2014 [facility] no information Doctor Migration (no [facility] (no - phone) phone) 10-29-2014 - 10-29-2014 09-15-2014 [facility] no information Doctor Migration (no [facility] (no - phone) phone) 09-15-2014 - 09-15-2014 07-07-2014 [facility] no information SHANTELL SMITH (no [facility] (no - phone) Doctor phone) 07-07-2014 Migration (no phone) - SHANTELL SMITH (no 07-07-2014 phone) Doctor Migration (no phone) SHANTELL Rose (no phone) Doctor Migration (no phone) 07-06-2014 [facility] no information EDIE GAMBLE (no [facility] (no - phone) Doctor phone) 07-06-2014 Migration (no phone) - EDIE GAMBLE (no 07-06-2014 phone) Doctor Migration (no phone) EDIE GAMBLE (no phone) Doctor Migration (no phone) 12-25-2019 [facility] Hematuria, unspecified JEFFREY OR ELLANA (no [facility] CARE phone) CARE (no phone) 02-08-2015 [facility] no information Doctor Migrati on (no [facility] - phone) (no phone) 02-08-2015 - 02-08-2015 02-07-2015 [facility] no information Doctor Migrati on (no [facility] - phone) (no phone) 02-07-2015 - 02-07-2015 10-01-2014 [facility] no information Doctor Migrati on (no [facility] - phone) SHANTELL SMITH (no phone) 10-01-2014 (no phone) Doctor - Migration (no phone) 10-01-2014 SHANTELL SMITH (no phone) Doctor Migration (no phone) SHANTELL Rose (no phone) 01-09-2020 Patient encounter no information EDIE GAMBLE ( no [facility] phone) [facility] (no phone) 12-25-2019 Patient encounter no information EDIE GAMBLE ( no [facility] procedure phone) (no phone) (no [facility] phone) [place] (no phone) 06-19-2019 Patient encounter no information no name (no phone) no organization name procedure (no phone) 04-27-2019 Patient encounter no information no name (no phone) no organization name procedure (no phone) 01-13-2019 Patient encounter no information no name (no phone) no organization name procedure (no phone) 12-30-2018 Patient encounter no information no name (no phone) no organization name procedure (no phone) 11-04-2018 Patient encounter no information no name (no phone) no organization name procedure (no phone) 09-02-2018 Patient encounter no information no name (no phone) no organization name procedure (no phone) 10-03-2016 Patient encounter no information no name (no phone) no organization name procedure (no phone) no information Encounter for dental no name (no phone) no or ganization name examination and (no phone) cleaning without abnormal findings Medical Equipment No Information Payers No Information History general Narrative - Reported Note Type Note Facility History general Narrative - Reported Type Medical Colitis dx by colonoscopy a ge 17 History Medical bipolar disorder History Medical IBS History Medical 2017 EGD, reportedly unrema rkable History Medical Other ulcerative colitis History Medical Other ulcerative colitis History Medical Enthesopathy of unspecified site History Medical Sciatica History Medical Dysthymic disorder History Surgical tonsillectomy and adenoidec nicole History Surgical Tubes in ears x 4 History Hospitaliz surgeries ation History [facility] ([id number]) Advance Directives Directive Response Recor ded Date/Time Advance Directives No 11:13am Health Care Power of Ethics Officer No 10/16/16 11:13am Organ Donor No 10/16/16 11:13am Resuscitation Status Full Code 10/16/16 11:13am Discharge Instructions Patient Instructions Physician Instructions New, Converted or Re-Newed RX: Transmitted to Pharmacy Plan of Care/Instructions/FU: Follow up with dr. Mas in 2 weeks take medication as prescribed. Activity as Tolerated: Yes Discharge Diet: No Restrictions Care Plan Patient Instructions:: Follow up with dr. Mas in 2 weekstake medication as prescribed. Summary Purpose [email or web address] SubmissioneClinicalWorks [email or web address] SubmissioneClinicalWorks Submission Additional Source Comments This clinical document has been generated using [employer] software that has been certified by the Office of the National Coordinator for Health Information Technology (ONC 15.99.04.3023.Diam.31.00.0.376461) and the National Committee for Green End Department Supervisor (NCQA, as an eMeasure certified technology). FOR RECORDS PERTAINING TO PATIENTS WHO ARE OR HAVE BEEN ENROLLED IN A CHEMICAL D EPENDENCY/SUBSTANCE ABUSE PROGRAM, SOME INFORMATION MAY BE OMITTED. This clinica l summary was aggregated from multiple sources. Caution should be exercised in using it in the provision of clinical care. This summary normalizes information from multiple sources, and as a consequence, information in this document may ma terially change the coding, format and clinical context of patient data. In muaricio tion, data may be omitted in some cases. CLINICAL DECISIONS SHOULD BE BASED ON T HE PRIMARY CLINICAL RECORDS. [employer] provides no warranty or guara ntee of the accuracy or completeness of information in this document.The followi ng information is based on time limited clinical information UNRECOGNIZED CONTENT PROVIDED BELOW FOR UNRECOGNIZED SECTION MEDICAL (GENERAL) HISTORY Type Description Date Medical History Colitis dx by colono scopy age 17 Medical History bipolar disorder Medical History IBS Surgical History tonsillectomy and a denoidectomy Surgical History Tubes in ears x 4 Hospitalization History surgeries Type Description Date Medical History Colitis dx by trina kirkland age 17 Medical History bipolar disorder Medical History IBS Medical History 2017 EGD, reportedly unremarkable Surgical History tonsillectomy and a denoidectomy Surgical History Tubes in ears x 4 Hospitalization History surgeries Type Description Date Medical History Colitis dx by trina kirkland age 17 Medical History bipolar disorder Medical History IBS Medical History 2017 EGD, reportedly unremarkable Medical History Other ulcerative colitis Medical History Enthesopathy of unsp ecified site Medical History Sciatica Medical History Dysthymic disorder Surgical History tonsillectomy and a denoidectomy Surgical History Tubes in ears x 4 Hospitalization History surgeries UNRECOGNIZED CONTENT PROVIDED BELOW FOR UNRECOGNIZED SECTION REASON FOR VISIT pain referral from walk-intooth pain-the patient has a tooth broke off on the to p left. She has facial swelling. She has had 3 Aleve and 2 ibuprofen with no rel ief.--TShumberto, PRBSB-XimFCZ-MhyBilob, body aches, coughing starting yesterday KJ ones RNstates she woke up this morning coughing up green sputum, states there wa s blood in it. concepcion Flores
--- OUTSIDE RECORDS SUMMARY | 2020-02-27 14:12 | XMS REPORT ---
Author Author Beverley HICKMAN [address] Address [address] [place] [address] Care Team Providers Care Manager Produce Name Role Phone MARYLOU NIKOLE Unavailable PROBLEMS Type Condition ICD9-CM Code [id number] Code Onset Dates Condition S tatus SNOMED Code Problem Family hx of colon cancer Z80.0 Acti ve [id number] Problem Irritable bowel syndrome with diarrhea K58.0 Active 849758918 Problem Lumbosacral radiculopathy M54.17 Acti ve 2660447 ALLERGIES Substance Reaction Event Type Date Status Viibryd diarrhea Drug Allergy Dec, Active ENCOUNTERS Encounter Location Date Diagnosis [facility] [address] [place] [phone] Nov, Blood in urine R31.9 and Uri nary tract infection, site not specified N39.[address] [id number] Apr, Allergic contact dermatitis, unspecified trigger L23.[address] [id number] Dec, Viral upper respiratory tract infection J06.[address] [id number] Dec, Influenza J11.1 [facility] [address] [facility] [id number] [address] [place] [address] Oct, Acute gastroenteritis K52.[address] [id number] Aug, Fever, unspecified R50.9 and Acute viral syndrome B34.9 [facility] [address] [facility] [place] [address] May, Dental examination Z01.20 [facility] [address] [place] [id number] [address] [place] [address] May, Mouth pain K13.[address] [id number] February, Transient heat fatigue, initial encounter T67.6XXA [facility] [place] [id number] [address] [place] [address] Jul, Acute non-recurrent maxillar y sinusitis J01.[address] [id number] Sep, [address] [id number] Aug, Irritable bowel syndrome with diarrhea K58.0 and Family hx of colon cancer Z80.0 [facility] [address] [place], [place] [id number] [address] [place] [address] Jul, Urinary tract infection, sit e not specified N39.0 and Hematuria R31.9 [facility] [address] [place] [id number] [address] [place] [address] Jul, Pharyngitis, unspecified meg ology J02.[address] [id number] February, Lumbosacral radiculopathy M54.[address] [id number] February, Lumbago with sciatica, left side M54.42 and Lumbago with sciatica, right side M54.41 [facility] [address] [facility] [place] [address] Jan, Dental examination Z01.[address] [id number] Oct, Acute suppurative otitis media of both ears without spontaneous rupture of tympanic membranes, recurrence not specified H66.003 and Other infective otitis externa of right ear H60.[address] [id number] Sep, Laceration of wrist, left S61.512A [address] [id number] Sep, [address] [id number] May, Dysthymic disorder 300.[address] [id number] Mar, Sciatica 724.3 [place] [address] [address] Jan, [place] [address] [address] Jan, [address] [id number] Oct, [place] [address] [address] Oct, [place] [address] [address] Sep, [address] [id number] Sep, [address] [id number] Aug, [place] [address] [address] Aug, [address] [id number] Jun, [place] [address] [address] Jun, [address] [id number] Jun, [place] [address] [address] Jun, IMMUNIZATIONS No Known Immunizations SOCIAL HISTORY Never Assessed REASON FOR VISIT states she woke up this morning coughing up green sputum, states there was blood in it. concepcion Flores PLAN OF CARE Activity Details Follow Up prn Reason: VITAL SIGNS Height 64.5 in 2019-01-13 Weight 156 lbs 2019-01-13 Temperature 98.2 degrees Fahrenheit 2019-01-13 Heart Rate 104 bpm 2019-01-13 Respiratory Rate 18 2019-01-13 Oximetry 96 % 2019-01-13 BMI 26.36 kg/m2 2019-01-13 Blood pressure systolic 108 mmHg 2019-01-13 Blood pressure diastolic 70 mmHg 2019-01-13 MEDICATIONS Medication Instructions Dosage Frequency Start Date End Date Duration S tatus PredniSONE 20 mg Orally Once a day 1 tablet 24h Dec, 3 days Active Zyrtec Allergy 10 mg Orally Once a day 1 tablet 24h Dec, 30 day(s) Active RESULTS No Results PROCEDURES No [...]
--- OUTSIDE RECORDS SUMMARY | 2020-02-27 14:12 | XMS REPORT ---
Author Author Beverley Nichols Doctor Organization [facility] Address Unknown Phone Unavailable Care Team Providers Care Site Safety Manager Name Role Phone Migration, Doctor Unavailable Unavailable PROBLEMS Type Condition ICD9-CM Code [id number] Code Onset Dates Condition S tatus SNOMED Code Problem Family hx of colon cancer Z80.0 Acti ve 308487873 Problem Irritable bowel syndrome with diarrhea K58.0 Active 005110977 Problem Lumbosacral radiculopathy M54.17 Acti ve 1912963 ALLERGIES No Information ENCOUNTERS Encounter Location Date Diagnosis [address], [place] [id number] Apr, Allergic contact dermatitis, unspecified trigger L23.[address], [place] [id number] Dec, Viral upper respiratory tract infection J06.[address], [place] [id number] Dec, Influenza J11.1 [facility] [address] [place] [address] Oct, Acute gastroenteritis K52.[address], [place] [id number] Aug, Fever, unspecified R50.9 and Acute viral syndrome B34.9 [facility] [address] [address] May, Dental examination Z01.20 [facility] [address] [address] May, Mouth pain K13.79 [facility] [address], [place] [id number] February, Transient heat fatigue, initial encounte r T67.6XXA [facility] [address] [facility] [id number] [address] [place] [address] Jul, Acute non-recurrent maxillar y sinusitis J01.00 [facility] [address] [place] [id number] [place] [address], [place] [id number] Sep, [facility] [address] [facility] [id number] [place] [id number] Aug, Irritable bowel syndrome with diarrhea K 58.0 and Family hx of colon cancer Z80.0 [facility] [address] [address] Jul, Urinary tract infection, sit e not specified N39.0 and Hematuria R31.9 [facility] [address] [facility] [id number] [address] [place] [address] Jul, Pharyngitis, unspecified meg ology J02.9 [facility] [address], [place] [id number] February, Lumbosacral radiculopathy M54.17 [facility] [address], [place] [id number] February, Lumbago with sciatica, left side M54.42 and Lumbago with sciatica, right side M54.41 [facility] [address] [place] [id number] [address] [place] [address] Jan, Dental examination Z01.20 [facility] [address] [place] [id number] [place] [address], [place] [id number] Oct, Acute suppurative otitis media of both e ars without spontaneous rupture of tympanic membranes, recurrence not specified H66.003 and Other infective otitis externa of right ear H60.391 [facility] [address] [place] [id number] [place] [address], [place] [id number] Sep, Laceration of wrist, left S61.512A [facility] [address] [id number] [place] [id number] Sep, [facility] [address], [place] [id number] May, Dysthymic disorder 300.4 [facility] [address] [facility] [id number] [place] [id number] Mar, Sciatica 724.3 [facility] [address] [facility] [id number] [address] [place] [address] Jan, [facility] [address] [facility] [id number] [address] [place] [address] Jan, [facility] [address] [facility] [id number] [place] [id number] Oct, [facility] [address] [facility] [id number] [address] [place] [address] Oct, [facility] [address] [facility] [id number] [address] [place] [address] Sep, [facility] [address] [facility] [id number] [place] [id number] Sep, [facility] [address] [facility] [id number] [place] [id number] Aug, [facility] [address] [facility] [id number] [address] [place] [address] Aug, [facility] [address] [facility] [id number] [place] [id number] Jun, [facility] [address] [facility] [id number] [address] [place] [address] Jun, [facility] [address] [facility] [place] [id number] [place] [id number] Jun, [facility] [address] [facility] [id number] [address] [place] [address] Jun, IMMUNIZATIONS No Known Immunizations SOCIAL HISTORY [...]
--- OUTSIDE RECORDS SUMMARY | 2020-02-27 14:12 | XMS REPORT ---
Author Author Beverley Rose Organization [facility] Address [address] [place] [address] Care Team Providers Care Commercial Finance Analyst Name Role Phone SHANTELL Rose Unavailable PROBLEMS Type Condition ICD9-CM Code [id number] Code Onset Dates Condition S tatus SNOMED Code Problem Family hx of colon cancer Z80.0 Acti ve 553645381 Problem Irritable bowel syndrome with diarrhea K58.0 Active 855321000 Problem Lumbosacral radiculopathy M54.17 Acti ve 7445925 ALLERGIES No Information ENCOUNTERS Encounter Location Date Diagnosis [address], [place] [id number] Apr, Allergic contact dermatitis, unspecified trigger L23.[address], [place] [id number] Dec, Viral upper respiratory tract infection J06.[address], [place] [id number] Dec, Influenza J11.1 [facility] [address] [address] Oct, Acute gastroenteritis K52.[address], [place] [id number] Aug, Fever, unspecified R50.9 and Acute viral syndrome B34.9 [facility] [address] [address] May, Dental examination Z01.20 [facility] [address] [place] [id number] [address] [place] [address] May, Mouth pain K13.[address], [place] [id number] February, Transient heat fatigue, initial encounte r T67.6XXA [facility] [address] [address] Jul, Acute non-recurrent maxillar y sinusitis J01.00 [facility] [address] [id number] [place] [id number] Sep, [facility] [address], [place] [id number] Aug, Irritable bowel syndrome with diarrhea K 58.0 and Family hx of colon cancer Z80.0 [facility] [address] [address] Jul, Urinary tract infection, sit e not specified N39.0 and Hematuria R31.9 [facility] [address] [address] Jul, Pharyngitis, unspecified meg ology J02.9 [facility] [address] [place] [id number] [place] [id number] February, Lumbosacral radiculopathy M54.17 [facility] [address] [place] [id number] [place] [address], [place] [id number] February, Lumbago with sciatica, left side M54.42 and Lumbago with sciatica, right side M54.41 [facility] [address] [place] [id number] [address] [place] [address] Jan, Dental examination Z01.20 [facility] [address] [id number] [place] [id number] Oct, Acute suppurative otitis media of both e ars without spontaneous rupture of tympanic membranes, recurrence not specified H66.003 and Other infective otitis externa of right ear H60.391 [facility] [address] [id number] [place] [id number] Sep, Laceration of wrist, left S61.512A [facility] [address] [id number] [place] [id number] Sep, [facility] [place] [address] [id number] [place] [id number] May, Dysthymic disorder 300.4 [facility] [place] [address] [id number] [place] [id number] Mar, Sciatica 724.3 [facility] [address] [facility] [id number] [address] [place] [address] Jan, [facility] [address] [facility] [id number] [address] [place] [address] Jan, [facility] [address] [id number] [place] [id number] Oct, [facility] [address] [facility] [id number] [address] [place] [address] Oct, [facility] [address] [facility] [id number] [address] [place] [phone] Sep, [facility] [address] [id number] [place] [id number] Sep, [facility] [address] [id number] [place] [id number] Aug, [facility] [address] [facility] [id number] [address] [place] [phone] Aug, [facility] [address] [facility] [id number] [place] [id number] Jun, [facility] [address] [facility] [id number] [address] [place] [address] Jun, [facility] [address] [facility] [id number] [place] [id number] Jun, [facility] [address] [facility] [id number] [address] [place] [address] Jun, IMMUNIZATIONS No Known Immunizations SOCIAL HISTORY Never Assessed REASON FOR VISIT PLAN OF CARE VITAL SIGNS Height 64.5 in 2014-10-01 Weight 143 lbs 2014-10-01 Temperature 97.7 degrees Fahrenheit 2014-10-01 Heart Rate 72 bpm 2014-10-01 Respiratory Rate 2014-10-01 Blood pressure systolic 90 mmHg 2014-10-01 Blood pressure diastolic 54 mmHg 2014-10-01 MEDICATIONS No Known Medications RESULTS No Results [...]
--- OUTSIDE RECORDS SUMMARY | 2020-02-27 14:12 | XMS REPORT ---
Author Author Beverley Nichols Doctor Organization [facility] Address Unknown Phone Unavailable Care Team Providers Care Code Official Name Role Phone Migration, Doctor Unavailable Unavailable PROBLEMS Type Condition ICD9-CM Code JFC28-SC Code Onset Dates Condition S tatus SNOMED Code Problem Other ulcerative colitis 556.8 Activ e 58208827 Problem Pain in joint, forearm 719.43 Active 664901367 Problem Family hx of colon cancer Z80.0 Acti ve 274879727 Problem Irritable bowel syndrome with diarrhea K58.0 Active 193896569 Problem Enthesopathy of unspecified site 726.90 Active 24952623 Problem Sciatica 724.3 Active 86611965 Problem Dysthymic disorder 300.4 Active 7 7007824 Problem Lumbosacral radiculopathy M54.17 Acti ve 1238805 ALLERGIES No Information ENCOUNTERS Encounter Location Date Diagnosis [place] [id number] [place] [address], [place] [id number] Dec, Viral upper respiratory tract infection J06.[address], [place] [id number] Dec, Influenza J11.1 [facility] [address] [address] Oct, Acute gastroenteritis K52.9 [place] [id number] [place] [address], [place] [id number] Aug, Fever, unspecified R50.9 and Acute viral syndrome B34.9 [facility] [address] [address] May, Dental examination Z01.20 [facility] [address] [place] [id number] [address] [place] [address] May, Mouth pain K13.79 [facility] [address], [place] [id number] February, Transient heat fatigue, initial encounte r T67.6XXA [facility] [address] [address] Jul, Acute non-recurrent maxillar y sinusitis J01.00 [facility] [address] [id number] [place] [id number] Sep, [facility] [address], [place] [id number] Aug, Irritable bowel syndrome with diarrhea K 58.0 and Family hx of colon cancer Z80.0 [facility] [address] [address] Jul, Urinary tract infection, sit e not specified N39.0 and Hematuria R31.9 [facility] [address] [address] Jul, Pharyngitis, unspecified meg ology J02.9 [facility] [address] [place] [id number] [place] [address], [place] [id number] February, Lumbosacral radiculopathy M54.17 [facility] [address] [place] [id number] [place] [address], [place] [id number] February, Lumbago with sciatica, left side M54.42 and Lumbago with sciatica, right side M54.41 [facility] [address] [place] [id number] [address] [place] [address] Jan, Dental examination Z01.20 [facility] [address] [id number] [place] [id number] Oct, Acute suppurative otitis media of both e ars without spontaneous rupture of tympanic membranes, recurrence not specified H66.003 and Other infective otitis externa of right ear H60.391 [facility] [address] [id number] [place] [id number] Sep, Laceration of wrist, left S61.512A [facility] [address] [place] [id number] [place] [address], [place] [id number] Sep, [facility] [address] [id number] [place], [place] [id number] May, Dysthymic disorder 300.4 [facility] [address] [id number] [place], [place] [id number] Mar, Sciatica 724.3 [facility] [address] [facility] [id number] [address] [place] [address] Jan, [facility] [address] [facility] [id number] [address] [place] [address] Jan, [facility] [address] [id number] [place] [id number] Oct, [facility] [address] [facility] [id number] [address] [place] [address] Oct, [facility] [address] [facility] [id number] [address] [place] [address] Sep, [facility] [address] [id number] [place] [id number] Sep, [facility] [address] [id number] [place] [id number] Aug, [facility] [address] [facility] [id number] [address] [place] [address] Aug, [facility] [address] [facility] [id number] [place] [id number] Jun, [facility] [address] [facility] [id number] [address] [place] [phone] Jun, [facility] [address] [facility] [id number] [place] [id number] Jun, [facility] [address] [facility] [id number] [address] [place] [address] Jun, IMMUNIZATIONS No Known Immunizations SOCIAL HISTORY Never Assessed REASON FOR VISIT [place] [place] VITAL SIGNS MEDICATIONS No [...]
--- OUTSIDE RECORDS SUMMARY | 2020-02-27 14:13 | XMS REPORT ---
Author Author Beverley GARRIDO Organization [facility] Address [address] [place] [address] Care Team Providers Care Front Desk Name Role Phone GARRIDO, EVARISTO Unavailable PROBLEMS Type Condition ICD9-CM Code [id number] Code Onset Dates Condition S tatus SNOMED Code Problem Pain in joint, forearm 719.43 Active 657627195 Problem Other ulcerative colitis 556.8 Activ e 18993034 Problem Irritable bowel syndrome with diarrhea K58.0 Active 145509947 Problem Family hx of colon cancer Z80.0 Acti ve 821713643 Problem Sciatica 724.3 Active 30705174 Problem Enthesopathy of unspecified site 726.90 Active 71022198 Problem Lumbosacral radiculopathy M54.17 Acti ve 2874586 Problem Dysthymic disorder 300.4 Active 7 7662715 ALLERGIES Substance Reaction Event Type Date Status Viibryd diarrhea Drug Allergy May, Active ENCOUNTERS Encounter Location Date Diagnosis [facility] [address] [address] May, Dental examination Z01.20 [facility] [address] [address] May, Mouth pain K13.79 [facility] [address] [id number] [id number] February, Transient heat fatigue, initial encounte r T67.6XXA [facility] [address] [address] Jul, Acute non-recurrent maxillar y sinusitis J01.00 [facility] [address] [id number] [place] [id number] Sep, [facility] [address], [place] [id number] Aug, Irritable bowel syndrome with diarrhea K 58.0 and Family hx of colon cancer Z80.0 [facility] [address] [address] Jul, Urinary tract infection, sit e not specified N39.0 and Hematuria R31.9 [facility] [address] [address] Jul, Pharyngitis, unspecified meg ology J02.9 [facility] [id number] [place] [address], [place] [id number] February, Lumbosacral radiculopathy M54.17 [facility] [address], [place] [id number] February, Lumbago with sciatica, left side M54.42 and Lumbago with sciatica, right side M54.41 [place] [address] [address] Jan, Dental examination Z01.20 [facility] [id number] [place] [address], [place] [id number] Oct, Acute suppurative otitis media of both e ars without spontaneous rupture of tympanic membranes, recurrence not specified H66.003 and Other infective otitis externa of right ear H60.[address], [place] [id number] Sep, Laceration of wrist, left S61.512A [facility] [address], [place] [id number] Sep, [place] [address], [place] [id number] May, Dysthymic disorder 300.4 [facility] [address], [place] [id number] Mar, Sciatica 724.3 [facility] [address] [address] Jan, [facility] [address] [id number] [address] [place] [phone] Jan, [facility] [address] [id number] [place] [id number] Oct, [facility] [address] [facility] [id number] [address] [place] [phone] Oct, [facility] [address] [id number] [address] [place] [phone] Sep, [facility] [address] [id number] [place] [id number] Sep, [facility] [address] [id number] [place] [id number] Aug, [facility] [address] [id number] [address] [place] [phone] Aug, [facility] [address] [id number] [place] [id number] Jun, [facility] [address] [id number] [address] [place] [phone] Jun, [facility] [address] [id number] [place] [id number] Jun, [facility] [address] [facility] [id number] [address] [place] [phone] Jun, IMMUNIZATIONS No Known Immunizations SOCIAL HISTORY Never Assessed REASON FOR VISIT tooth pain-the patient has a tooth broke off on the top left. She has facial sw elling. She has had 3 Aleve and 2 ibuprofen with no relief.--KARL Liz PLAN OF CARE Activity Details Follow Up w/ dental Reason:mouth pain VITAL SIGNS Height 64.5 in 2018-06-20 Weight 149 lbs 2018-06-20 Temperature 97.6 degrees Fahrenheit 2018-06-20 Heart Rate 84 bpm 2018-06-20 Respiratory Rate 20 2018-06-20 BMI 25.18 kg/m2 2018-06-20 Blood pressure systolic 98 mmHg 2018-06-20 Blood pressure diastolic 62 mmHg 2018-06-20 MEDICATIONS Medication Instructions Dosage Frequency Start Date End Date Duration S sharyn Amoxicillin 500 mg Orally every 8 hrs 1 capsule 8h May, May, 07 days Active RESULTS No Results PROCEDURES No Known procedures INSTRUCTIONS MEDICATIONS ADMINISTERED No Known Medications MEDICAL (GENERAL) HISTORY Type Description Date Medical History Colitis dx by colonoscopy age 17 Medical History bipolar disorder Medical History IBS Surgical History tonsillectomy and adenoidectomy Surgical History Tubes in ears x 4 Hospitalization History surgeries
--- OUTSIDE RECORDS SUMMARY | 2020-02-27 14:13 | XMS REPORT ---
Author Author Beverley GAMBLE Organization [employer] Address Unknown Phone Unavailable Care Team Providers Care Long Wall Mining Machine Helper Name Role Phone EDIE GAMBLE CP Unavailable Allergies, Adverse Reactions, Alerts Substance Reaction Event Type Viibryd diarrhea Drug Allergy Problems Problem Type Condition Code Onset Dates Condition Statu s Problem Sciatica 724.3 Active Problem Other ulcerative colitis 556.8 Act mariella Problem Dysthymic disorder 300.4 Active Assessment Acute suppurative otitis med ia of both ears without spontaneous rupture of tympanic membranes, recurrence not specified H66.003 Active Assessment Other infective otitis externa of right ear H60.391 Active Problem Pain in joint, forearm 719.43 Activ e Problem Enthesopathy of unspecified site 726.90 Active Medications Medication Code System Code Instructions Start Date End Date Status Dosage Augmentin [facility] [address]-43 875-125 MG Orally every 12 hrs Ja n 2015Nov 26, 2015 1 tablet Trazodone HCl [facility] [address]-80 50 MG Orally Once a day 1 tablet at bedtime as needed Floxin Otic NDC 0 0.3 % Otic Once a day Nov 16, 2015 Nov 23, 2 016 5 drops into affected ear Venlafaxine HCl [facility] [address]-54 37.5 MG Orally Twice a day Jun 21, 2015 1 tablet with food Procedures Procedure Coding System Code Date Office Visit, Est Pt., Level 3 CPT-4 89402 J an 2015 Vital Signs Date/Time: Nov 16, 2015 Temperature 98.4 F Weight 157.6 lbs Height 64.5 in BMI 26.63 Index Blood Pressure Diastolic 70 mmHg Blood Pressure Systolic 120 mmHg Cardiac Monitoring Heart Rate 82 bpm Results No Known Results Summary Purpose [employer] Submission
--- OUTSIDE RECORDS SUMMARY | 2020-02-27 14:13 | XMS REPORT ---
Author Author Beverley GAMBLE [facility] Address [address] [place] [address] Care Team Providers Care Jackspooler Name Role Phone EDIE GAMBLE Unavailable PROBLEMS Type Condition ICD9-CM Code [id number] Code Onset Dates Condition S tatus SNOMED Code Problem Pain in joint, forearm 719.43 Active 377076161 Problem Enthesopathy of unspecified site 726.90 Active 74607784 Problem Irritable bowel syndrome with diarrhea K58.0 Active 905043388 Problem Family hx of colon cancer Z80.0 Acti ve 830678202 Problem Sciatica 724.3 Active 52479587 Problem Other ulcerative colitis 556.8 Activ e 98597845 Problem Lumbosacral radiculopathy M54.17 Acti ve 9213513 Problem Dysthymic disorder 300.4 Active 7 6620534 ALLERGIES Unknown Allergies SOCIAL HISTORY No smoking Hx information available PLAN OF CARE VITAL SIGNS MEDICATIONS Medication Instructions Dosage Frequency Start Date End Date Duration S tatus Canasa 1000 MG Rectal Once a day 1 suppository at bedtime 24h Sep Active RESULTS No Results PROCEDURES No Known procedures IMMUNIZATIONS No Known Immunizations
--- OUTSIDE RECORDS SUMMARY | 2020-02-27 14:13 | XMS REPORT ---
Author Author Beverley GAMBLE Organization [employer] Address Unknown Phone Unavailable Care Team Providers Care Broke Handler Name Role Phone EDIE GAMBLE CP Unavailable Allergies No Known Allergies Problems Problem Type Condition Code Onset Dates Condition Statu s Problem Sciatica 724.3 Active Problem Other ulcerative colitis 556.8 Act mariella Problem Dysthymic disorder 300.4 Active Problem Pain in joint, forearm 719.43 Activ e Problem Enthesopathy of unspecified site 726.90 Active Medications Medication Code System Code Instructions Start Date End Date Status Dosage Venlafaxine HCl [facility] [address]-37 37.5 MG Orally Twice a day Jun 21, 2015 1 tablet with food Results No Known Results Summary Purpose [employer] Submission
--- OUTSIDE RECORDS SUMMARY | 2020-02-27 14:13 | XMS REPORT ---
Author Author Beverley GAMBLE Organization [facility] Address [address] [place] [address] Care Team Providers Care Mortgage Closer Name Role Phone EDIE GAMBLE Unavailable PROBLEMS Type Condition ICD9-CM Code JCI09-HU Code Onset Dates Condition S tatus SNOMED Code Problem Pain in joint, forearm 719.43 Active 092351964 Problem Other ulcerative colitis 556.8 Activ e 70012078 Problem Irritable bowel syndrome with diarrhea K58.0 Active 063364566 Problem Family hx of colon cancer Z80.0 Acti ve 027398463 Problem Sciatica 724.3 Active 67597733 Problem Enthesopathy of unspecified site 726.90 Active 69198044 Problem Lumbosacral radiculopathy M54.17 Acti ve 4019993 Problem Dysthymic disorder 300.4 Active 7 6123298 ALLERGIES Substance Reaction Event Type Date Status Viibryd diarrhea Drug Allergy February, Active ENCOUNTERS Encounter Location Date Diagnosis [address] [place] [address], [place] [id number] February, Transient heat fatigue, initial encounte r T67.6XXA [facility] [id number] [place] [phone] Jul, Acute non-recurrent maxillar y sinusitis J01.00 [facility] [address] [facility] [id number] [place] [id number] Sep, [place] [id number] [place] [address], [place] [id number] Aug, Irritable bowel syndrome with diarrhea K 58.0 and Family hx of colon cancer Z80.0 [facility] [address] [facility] [id number] [address] [place] [phone] Jul, Urinary tract infection, sit e not specified N39.0 and Hematuria R31.9 [facility] [address] [facility] [id number] [address] [place] [address] Jul, Pharyngitis, unspecified meg ology J02.9 [facility] [address] [facility] [id number] [place] [id number] February, Lumbosacral radiculopathy M54.17 [facility] [id number] [place] [address], [place] [id number] February, Lumbago with sciatica, left side M54.42 and Lumbago with sciatica, right side M54.41 [facility] [id number] [place] [phone] Jan, Dental examination Z01.20 [facility] [address] [id number] [place] [id number] Oct, Acute suppurative otitis media of both e ars without spontaneous rupture of tympanic membranes, recurrence not specified H66.003 and Other infective otitis externa of right ear H60.391 [facility] [address] [id number] [place] [id number] Sep, Laceration of wrist, left S61.512A [facility] [address] [id number] [place] [id number] Sep, [facility] [address] [id number] [place] [id number] May, Dysthymic disorder 300.4 [facility] [address] [id number] [place] [id number] Mar, Sciatica 724.3 [facility] [address] [id number] [address] [place] [phone] Jan, [facility] [address] [facility] [id number] [address] [place] [phone] Jan, [facility] [address] [id number] [place] [id number] Oct, [facility] [id number] [place] [phone] Oct, [facility] [address] [facility] [id number] [address] [place] [phone] Sep, [facility] [address] [id number] [place] [id number] Sep, [facility] [address] [id number] [place] [id number] Aug, [facility] [address] [facility] [id number] [address] [place] [phone] Aug, [facility] [address] [id number] [place] [id number] Jun, [facility] [address] [facility] [id number] [address] [place] [phone] Jun, [facility] [address] [id number] [place] [id number] Jun, [facility] [address] [facility] [id number] [address] [place] [phone] Jun, IMMUNIZATIONS No Known Immunizations SOCIAL HISTORY Never Assessed REASON FOR VISIT sPt c/o ear pain, headache, body aches started yesterday at work Allen BARAJAS PLAN OF CARE Activity Details Follow Up prn Reason: VITAL SIGNS Height 64.5 in 2018-03-04 Weight 153.4 lbs 2018-03-04 Temperature 97.6 degrees Fahrenheit 2018-03-04 Heart Rate 84 bpm 2018-03-04 Respiratory Rate 16 2018-03-04 BMI 25.92 kg/m2 2018-03-04 Blood pressure systolic 110 mmHg 2018-03-04 Blood pressure diastolic 68 mmHg 2018-03-04 MEDICATIONS Unknown Medications RESULTS No Results PROCEDURES No Known procedures INSTRUCTIONS MEDICATIONS ADMINISTERED No Known Medications MEDICAL (GENERAL) HISTORY Type Description Date Medical History Colitis dx by colonoscopy age 17 Medical History bipolar disorder Medical History IBS Surgical History tonsillectomy and adenoidectomy Surgical History Tubes in ears x 4 Hospitalization History surgeries
--- OUTSIDE RECORDS SUMMARY | 2020-02-27 14:13 | XMS REPORT ---
Author Author Beverley CANTU [facility] Organization [employer] Address Unknown Phone Unavailable Care Team Providers Care Ladle Repairman Name Role Phone LENNOX CANTU CP Unavailable Allergies, Adverse Reactions, Alerts Substance Reaction Event Type Viibryd diarrhea Drug Allergy Problems Problem Type Condition Code Onset Dates Condition Statu s Problem Sciatica 724.3 Active Problem Other ulcerative colitis 556.8 Act mariella Problem Dysthymic disorder 300.4 Active Assessment Laceration of wrist, left S61.512A Ac tive Problem Pain in joint, forearm 719.43 Activ e Problem Enthesopathy of unspecified site 726.90 Active Medications Medication Code System Code Instructions Start Date End Date Status Dosage Trazodone HCl [facility] [address]-23 50 MG Orally Once a day 1 tablet at bedtime as needed Venlafaxine HCl [facility] [address]-44 37.5 MG Orally Twice a day Jun 21, 2015 1 tablet with food Procedures Procedure Coding System Code Date Office Visit, Est Pt., Level 3 CPT-4 43439 D 2014 Vital Signs Date/Time: Oct 25, 2015 Temperature 98.8 F Weight 154.4 lbs Height 64.5 in BMI 26.09 Index Blood Pressure Diastolic 60 mmHg Blood Pressure Systolic 90 mmHg Cardiac Monitoring Heart Rate 84 bpm Results No Known Results Summary Purpose [employer] Submission
--- OUTSIDE RECORDS SUMMARY | 2020-02-27 14:13 | XMS REPORT ---
Author Author Beverley GAMBLE [facility] Address [address] [place] [address] Care Team Providers Care Jamb Cutter Name Role Phone EDIE GAMBLE Unavailable PROBLEMS Type Condition ICD9-CM Code [id number] Code Onset Dates Condition S tatus SNOMED Code Assessment Irritable bowel syndrome with diarrhea K58.0 Aug, Active 397945212 Problem Pain in joint, forearm 719.43 Active 726409676 Problem Enthesopathy of unspecified site 726.90 Active 65501044 Problem Irritable bowel syndrome with diarrhea K58.0 Active 818380414 Problem Family hx of colon cancer Z80.0 Acti ve 423801498 Problem Sciatica 724.3 Active 08317185 Problem Other ulcerative colitis 556.8 Activ e 34270496 Problem Lumbosacral radiculopathy M54.17 Acti ve 8792189 Problem Dysthymic disorder 300.4 Active 7 1931636 ALLERGIES Substance Reaction Event Type Date Status Viibryd diarrhea Drug Allergy Aug, Active SOCIAL HISTORY No smoking Hx information available PLAN OF CARE VITAL SIGNS Height 64.5 in 2016-09-12 Weight 155.6 lbs 2016-09-12 Heart Rate 64 bpm 2016-09-12 Respiratory Rate 16 2016-09-12 BMI 26.29 kg/m2 2016-09-12 Blood pressure systolic 110 mmHg 2016-09-12 Blood pressure diastolic 70 mmHg 2016-09-12 MEDICATIONS Medication Instructions Dosage Frequency Start Date End Date Duration S tatus Imodium Advanced 2-125 MG Orally 2 times a day after diarrhea s tool max 2x/d 12h Aug, Active Bentyl 20 mg Orally 4 times a day 1 tablet 20-30 m ac and hs 6h Active RESULTS No Results PROCEDURES Procedure Date Ordered Related Diagnosis Body Site Office Visit, Est Pt., Level 3 Sep 12, 2016 IMMUNIZATIONS No Known Immunizations
--- OUTSIDE RECORDS SUMMARY | 2020-02-27 14:13 | XMS REPORT | Continuity of Care Document ---
Author Organization Unknown Address Unknown Phone Unavailable Allergies Active Description Code Type Severity Reaction Onset Reported/Identified Relationship to Patient Clinical Status Yes No Known Drug Allergies [id number] Drug Allergy Unknown N/A 08/29/2016 Medications There is no data. Problems Date Dx Coded Attending Type Code Diagnosis Diagnosed By 07/06/2014 SHANTELL SMITH APRN 719.43 PAIN- WRIST 07/06/2014 FREDERIC NDIAYE DO 719.43 PAIN- WRIST 07/06/2014 JESSICA DDS, CHRISTIAN B 719 .43 PAIN- WRIST 07/06/2014 FREDERIC NDIAYE DO K 719.43 PAIN- WRIST 07/07/2014 SHANTELL SMITH APRN 726.90 ENTHESOPATHY OF UNSPECIFIED SITE 07/07/2014 FREDERIC NDIAYE DO K 726.90 ENTHESOPATHY OF UNSPECIFIED SITE 07/07/2014 JESSICA DDS, CHRISTIAN B 726 .90 ENTHESOPATHY OF UNSPECIFIED SITE 07/07/2014 FREDERIC NDIAYE DO K 726.90 ENTHESOPATHY OF UNSPECIFIED SITE 10/01/2014 FREDERIC NDIAYE DO K 556.8 OTHER ULCERATIVE COLITIS 10/01/2014 JESSICA DDS, CHRISTIAN B 556 .8 OTHER ULCERATIVE COLITIS 10/01/2014 FREDERIC NDIAYE DO K 556.8 OTHER ULCERATIVE COLITIS 02/03/2015 FREDERIC NDIAYE DO 847.2 SPRAIN LUMBAR REGION 08/29/2016 KALIA RAYGOZA, SHAWNA Samuel Ot K80.20 CALCULUS OF GALLBLADDER W/O CHOLECYSTITI 08/29/2016 KALIA RAYGOZA, SHAWNA Samuel Ot L23.7 ALLERGIC CONTACT DERMATITIS DUE TO PLANT 08/29/2016 KALIA RAYGOZA, SHAWNA Samuel Ot R10.30 LOWER ABDOMINAL PAIN, UNSPECIFIED 08/29/2016 SHAWNA MOTTA MD Ot R19.7 DIARRHEA, UNSPECIFIED 08/30/2016 SHAWNA MOTTA MD Ot K80.20 CALCULUS OF GALLBLADDER W/O CHOLECYSTITI 08/30/2016 SHAWNA MOTTA MD Ot L23.7 ALLERGIC CONTACT DERMATITIS DUE TO PLANT 08/30/2016 SHAWNA MOTTA MD Ot R10.30 LOWER ABDOMINAL PAIN, UNSPECIFIED 08/30/2016 SHAWNA MOTTA MD Ot R19.7 DIARRHEA, UNSPECIFIED 08/31/2016 SHAWNA MOTTA MD Ot K80.20 CALCULUS OF GALLBLADDER W/O CHOLECYSTITI 08/31/2016 SHAWNA MOTTA MD Ot L23.7 ALLERGIC CONTACT DERMATITIS DUE TO PLANT 08/31/2016 SHAWNA MOTTA MD Ot R10.30 LOWER ABDOMINAL PAIN, UNSPECIFIED 08/31/2016 SHAWNA MOTTA MD Ot R19.7 DIARRHEA, UNSPECIFIED 09/07/2016 SHAWNA MOTTA MD Ot K80.20 CALCULUS OF GALLBLADDER W/O CHOLECYSTITI 09/07/2016 SHAWNA MOTTA MD Ot L23.7 ALLERGIC CONTACT DERMATITIS DUE TO PLANT 09/07/2016 SHAWNA MOTTA MD Ot R10.30 LOWER ABDOMINAL PAIN, UNSPECIFIED 09/07/2016 SHAWNA MOTTA MD Ot R19.7 DIARRHEA, UNSPECIFIED 10/12/2016 JIM ENRIQUEZ DO Ot R19. 7 DIARRHEA, UNSPECIFIED 10/12/2016 JIM ENRIQUEZ DO Ot Z01.818 ENCOUNTER FOR OTHER PREPROCEDURAL EXAMIN 10/12/2016 IJM ENRIQUEZ DO Ot Z80. 0 FAMILY HISTORY OF MALIGNANT NEOPLASM OF 10/16/2016 JIM ENRIQUEZ DO Ot K62. 89 OTHER SPECIFIED DISEASES OF ANUS AND REC 10/16/2016 JIM ENRIQUEZ DO Ot Z80. 0 FAMILY HISTORY OF MALIGNANT NEOPLASM OF 10/17/2016 JIM ENRIQUEZ DO Ot K62. 89 OTHER SPECIFIED DISEASES OF ANUS AND REC 10/17/2016 JIM ENRIQUEZ DO Ot Z80. 0 FAMILY HISTORY OF MALIGNANT NEOPLASM OF 10/24/2016 JIM ENRIQUEZ DO Ot R19. 7 DIARRHEA, UNSPECIFIED 10/24/2016 JIM ENRIQUEZ DO Ot Z01.818 ENCOUNTER FOR OTHER PREPROCEDURAL EXAMIN 10/24/2016 JIM ENRIQUEZ DO Ot Z80. 0 FAMILY HISTORY OF MALIGNANT NEOPLASM OF 10/25/2016 JIM ENRIQUEZ DO Ot K62. 89 OTHER SPECIFIED DISEASES OF ANUS AND REC 10/25/2016 JIM ENRIQUEZ DO Ot Z80. 0 FAMILY HISTORY OF MALIGNANT NEOPLASM OF Procedures Code Description [place] [address] XRAY FOREARM LEFT 2 VIEWS 07/06/2014 74508 XRAY WRIST LEFT 2 VIEWS 07/06/2014 Results Test Result Range Urine Culture, Routine - 08/21/16 00:00 Urine Culture, Routine Note Complete blood count (CBC) with automate d white blood cell (WBC) differential - 08/29/16 15:26 Blood leukocytes automated count (number/volume) 8.3 10*3/uL 4.3-11.0 Blood erythrocytes automated count (number/volume) 4.91 10*6/uL 4.35-5.85 Venous blood hemoglobin measurement (mass/volume) 14.6 g/dL 11.5-16.0 Blood hematocrit (volume fraction) 42 % 35-52 Automated erythrocyte mean corpuscular volume 86 [ foz_us] 80-99 Automated erythrocyte mean corpuscular h emoglobin (mass per erythrocyte) 30 pg 25-34 Automated erythrocyte mean corpuscular h emoglobin concentration measurement (mass/volume) 35 g/dL 32-36 Automated erythrocyte distribution width ratio 12. 8 % 10.0- 14.5 Automated blood platelet count (count/volume) 238 10*3/uL 130-400 Automated blood platelet mean volume measurement 9.3 [foz_us] 7.4-10.4 Automated blood neutrophils/100 leukocytes 50 % 42-75 Automated blood lymphocytes/100 leukocytes 38 % 12-44 Blood monocytes/100 leukocytes 10 % 0-12 Automated blood eosinophils/100 leukocytes 1 % 0-10 Automated blood basophils/100 leukocytes 1 % 0-10 Blood neutrophils automated count (number/volume) 4.2 10*3 1.8-7.8 Blood lymphocytes automated count (number/volume) 3.1 10*3 1.0-4.0 Blood monocytes automated count (number/volume) 0. 8 10*3 0.0-1.0 Automated eosinophil count 0.1 10*3/uL 0 .0-0.3 Automated blood basophil count (count/volume) 0.0 10*3/uL 0.0-0.1 Comprehensive metabolic panel - 08/29/16 15:26 Serum or plasma sodium measurement (moles/volume) 138 mmol/L 135-145 Serum or plasma potassium measurement (moles/volume) 3.4 mmol/L 3.6-5.0 Serum or plasma chloride measurement (moles/volume) 106 mmol/L 98-107 Carbon dioxide 28 mmol/L 21-32 Serum or plasma anion gap determination (moles/volume) 4 mmol/L 5-14 Serum or plasma urea nitrogen measurement (mass/volume ) 6 mg/dL 7-18 Serum or plasma creatinine measurement (mass/volume) 0.84 mg/dL 0.60-1.30 Serum or plasma urea nitrogen/creatinine mass ratio 7 NRG Serum or plasma creatinine measurement w ith calculation of estimated glomerular filtration rate > NRG Serum or plasma glucose measurement (mass/volume) 99 mg/dL 70-105 Serum or plasma calcium measurement (mass/volume) 9.1 mg/dL 8.5-10.1 Serum or plasma total bilirubin measurement (mass/volu me) 0.5 mg/dL 0.1-1.0 Serum or plasma alkaline phosphatase andriy surement (enzymatic activity/volume) 88 U/L 40-136 Serum or plasma aspartate aminotransfera se measurement (enzymatic activity/volume) 16 U/L 5-34 Serum or plasma alanine aminotransferase measurement (enzymatic activity/volume) 15 U/L 0-55 Serum or plasma protein measurement (mass/volume) 7.1 g/dL 6.4-8.2 Serum or plasma albumin measurement (mass/volume) 4.6 g/dL 3.2-4.5 Magnesium - 08/29/16 15:26 Magnesium 2.0 mg/dL 1.8-2.4 Complete urinalysis with reflex to cultu re - 08/29/16 16:28 Urine color determination YELLOW NRG Urine clarity determination CLEAR NR G Urine pH measurement by test strip 7 5-9 Specific gravity of urine by test strip 1.005 1.016-1.022 Urine protein assay by test strip, semi-quantitative NEGATIVE NEGATIVE Urine glucose detection by automated test strip NE GATIVE NEGATIVE Erythrocytes detection in urine sediment by light micr oscopy NEGATIVE NEGATIVE Urine ketones detection by automated test strip NE GATIVE NEGATIVE Urine nitrite detection by test strip NEGATIVE NEGATIVE Urine total bilirubin detection by test strip NEGA TIVE NEGATIVE Urine urobilinogen measurement by automated test strip (mass/volume) NORMAL NORMAL Urine leukocyte esterase detection by dipstick NEG ATIVE NEGATIVE Automated urine sediment erythrocyte cou nt by microscopy (number/high power field) NONE NRG Automated urine sediment leukocyte count by microscopy (number/high power field) RARE NRG Bacteria detection in urine sediment by light microsco py TRACE NRG Squamous epithelial cells detection in u rine sediment by light microscopy 2-5 NRG Crystals detection in urine sediment by light microsco py NONE NRG Casts detection in urine sediment by light microscopy NONE NRG Mucus detection in urine sediment by light microscopy NEGATIVE NRG Complete urinalysis with reflex to culture NO NRG Urine beta human chorionic gonadotropin (hCG) measurement - 10/16/16 10:45 Urine beta human chorionic gonadotropin (hCG) measurem ent NEGATIVE NEGATIVE CULTURE, URINE - 12/25/19 17:35 CULTURE, URINE, ROUTINE SEE NOTE NRG Encounters ACCT No. Visit Date/Time Discharge Status Pt. Type Provider Facility Loc./Unit Complaint [id number] 02/03/2015 10:40:00 02/03/2015 23:59: 59 CLS Outpatient FREDERIC NDIAYE DO [id number] 11/09/2014 15:35:00 11/09/2014 23:59: 59 CLS Outpatient CHRISTIAN LOPEZ DDS [id number] 10/01/2014 08:55:00 10/01/2014 23:59: 59 CLS Outpatient FREDERIC NDIAYE DO [id number] 07/07/2014 09:24:00 07/07/2014 23:59: 59 CLS Outpatient SHANTELL SMITH APRN [id number] 10/16/2016 10:42:00 Charli 12:55:00 DIS Outpatient JIM ENRIQUEZ DO Via [facility] FAMILY HISTORY COLON CA NCER [id number] 10/11/2016 08:17:00 Charli 23:59:59 CLS Outpatient JIM ENRIQUEZ DO Via [facility] PREOP FAMILY HISTORY OF COLON CANCER [id number] 08/29/2016 14:35:00 17:25:00 DIS Emergency SHAWNA MOTTA MD Via [facility] ER ABD PAIN/DIARRH EA [id number] 08/23/2016 18:05:00 Document Registration [id number] 12/25/2019 17:10:00 12/25/2019 23:59:5 9 [facility] [id number] 12/25/2019 17:10:00 Document Registration
--- OUTSIDE RECORDS SUMMARY | 2020-02-27 14:13 | XMS REPORT ---
Author Author Beverley KRISHNAMURTHY Organization [employer] Address Unknown Phone Unavailable Care Team Providers Care Analytics Leader Name Role Phone TATI KRISHNAMURTHY CP Unavailable Allergies, Adverse Reactions, Alerts Substance Reaction Event Type Viibryd diarrhea Drug Allergy Problems Problem Type Condition Code Onset Dates Condition Statu s Problem Dysthymic disorder 300.4 Active Problem Sciatica 724.3 Active Problem Lumbosacral radiculopathy M54.17 Ac tive Problem Enthesopathy of unspecified site 726.90 Active Assessment Pharyngitis, unspecified etiology J02.9 Active Problem Other ulcerative colitis 556.8 Act mariella Problem Pain in joint, forearm 719.43 Activ e Medications Medication Code System Code Instructions Start Date End Date Status Dosage Ibuprofen [facility] [address]-60 200 MG Orally every 6 hrs 1 tablet as needed Augmentin [facility] [address]-40 875-125 MG Orally every 12 hrs Oc t 2015Aug 19, 2016 1 tablet Procedures Procedure Coding System Code Date Office Visit, Est Pt., Level 3 CPT-[address] 2015 Vital Signs Date/Time: Aug 09, 2016 Cardiac Monitoring Heart Rate 76 bpm Weight 159.4 lbs Height 64.5 in BMI 26.94 Index Blood Pressure Diastolic 76 mmHg Blood Pressure Systolic 112 mmHg Results No Known Results Summary Purpose [employer] Submission
--- OUTSIDE RECORDS SUMMARY | 2020-02-27 14:13 | XMS REPORT ---
Author Author Beverley DUTTON Organization [facility] Address [address] [place] [address] Care Team Providers Care Veneer Marker Name Role Phone ABDI DUTTON Unavailable PROBLEMS Type Condition ICD9-CM Code ZLF54-HD Code Onset Dates Condition S tatus SNOMED Code Problem Pain in joint, forearm 719.43 Active 267287399 Problem Other ulcerative colitis 556.8 Activ e 33564334 Problem Irritable bowel syndrome with diarrhea K58.0 Active 051403399 Problem Family hx of colon cancer Z80.0 Acti ve 291178087 Problem Sciatica 724.3 Active 81544280 Problem Enthesopathy of unspecified site 726.90 Active 03101814 Problem Lumbosacral radiculopathy M54.17 Acti ve 4403931 Problem Dysthymic disorder 300.4 Active 7 0268012 ALLERGIES Substance Reaction Event Type Date Status Viibryd diarrhea Drug Allergy Jul, Active ENCOUNTERS Encounter Location Date Diagnosis [facility] [id number] [place] [phone] Jul, Acute non-recurrent maxillar y sinusitis J01.00 [facility] [id number] [place] [address] S [id number] Sep, [facility] [id number] [place] [address] S [id number] Aug, Irritable bowel syndrome with diarrhea K 58.0 and Family hx of colon cancer Z80.0 [facility] [id number] [place] [phone] Jul, Urinary tract infection, sit e not specified N39.0 and Hematuria R31.9 [facility] [id number] [place] [phone] Jul, Pharyngitis, unspecified meg ology J02.9 [facility] [address] [id number] [place] [id number] February, Lumbosacral radiculopathy M54.17 [facility] [address] [id number] [place] [id number] February, Lumbago with sciatica, left side M54.42 and Lumbago with sciatica, right side M54.41 [facility] [address] [phone] Jan, Dental examination Z01.20 [facility] [address] [id number] [place] [id number] Oct, Acute suppurative otitis media of both e ars without spontaneous rupture of tympanic membranes, recurrence not specified H66.003 and Other infective otitis externa of right ear H60.391 [facility] [id number] [place] [address], [place] [id number] Sep, Laceration of wrist, left S61.512A [facility] [address] [id number] [place] [id number] Sep, [facility] [address] [facility] [id number] [place] [id number] May, Dysthymic disorder 300.4 [facility] [address] [id number] [place] [id number] Mar, Sciatica 724.3 [facility] [address] [place] [phone] Jan, [facility] [address] [facility] [id number] [address] [place] [phone] Jan, [facility] [id number] [place] [address], [place] [id number] Oct, [facility] [id number] [place] [phone] Oct, [facility] [id number] [place] [phone] Sep, [facility] [address] [id number] [place], [place] S [id number] Sep, [facility] [address] [id number] [place] [id number] Aug, [facility] [address] [facility] [id number] [place] [address] Aug, [facility] [address] [id number] [place] [id number] Jun, [facility] [address] [facility] [id number] [address] [place] [phone] Jun, [facility] [address] [facility] [id number] [place], [place] S [id number] Jun, [facility] [address] [facility] [id number] [address] [place] [phone] Jun, IMMUNIZATIONS No Known Immunizations SOCIAL HISTORY Never Assessed REASON FOR VISIT Sinus congestion, temp yesterday, ear pain JStrasserRN PLAN OF CARE VITAL SIGNS Height 64.5 in 2017-07-31 Weight 151 lbs 2017-07-31 Temperature 97.0 degrees Fahrenheit 2017-07-31 Heart Rate 88 bpm 2017-07-31 Respiratory Rate 20 2017-07-31 BMI 25.52 kg/m2 2017-07-31 Blood pressure systolic 90 mmHg 2017-07-31 Blood pressure diastolic 60 mmHg 2017-07-31 MEDICATIONS Medication Instructions Dosage Frequency Start Date End Date Duration S tatus Amoxicillin 500 mg Orally 3 times a day 1 capsule 8h Jul, 17 Jul, 14 days Active PredniSONE 20 mg Orally Once a day 2 tablets 24h Jul, Jul, 05 days Active RESULTS No Results PROCEDURES No Known procedures INSTRUCTIONS MEDICATIONS ADMINISTERED No Known Medications MEDICAL (GENERAL) HISTORY Type Description Date Medical History Colitis dx by colonoscopy age 17 Medical History bipolar disorder Medical History IBS Surgical History tonsillectomy and adenoidectomy Surgical History Tubes in ears x 4 Hospitalization History surgeries
--- OUTSIDE RECORDS SUMMARY | 2020-02-27 14:13 | XMS REPORT ---
Author Author Beverley GAMBLE Organization [employer] Address Unknown Phone Unavailable Care Team Providers Care Calibrator Barometers Name Role Phone EDIE GAMBLE CP Unavailable Allergies, Adverse Reactions, Alerts Substance Reaction Event Type Viibryd diarrhea Drug Allergy Problems Problem Type Condition ICD-9 Code Onset Dates Condition Statu s Problem Sciatica 724.3 Active Problem Other ulcerative colitis 556.8 Act mariella Problem Dysthymic disorder 300.4 Active Assessment Dysthymic disorder 300.4 Active Problem Pain in joint, forearm 719.43 Activ e Problem Enthesopathy of unspecified site 726.90 Active Medications Medication Code System Code Instructions Start Date End Date Status Dosage Venlafaxine HCl [facility] [address]-27 37.5 MG Orally Twice a day Jun 21, 2015 1 tablet with food Trazodone HCl [facility] [address]-22 50 MG Orally Once a day 1 tablet at bedtime as needed Procedures Procedure Coding System Code Date Office Visit, Est Pt., Level 3 CPT-4 31025 A 2014 Vital Signs Date/Time: Jun 21, 2015 Temperature 98.5 F Weight 151.6 lbs Height 64.5 in BMI 25.62 Index Cardiac Monitoring Heart Rate 84 bpm Results No Known Results Summary Purpose [employer] Submission
[2020-02-27] MEDS ORDERED: TRIM/SULFAMETH 160/800 (SEPTRA DS) TAB PO ONE (14:15)
[2020-02-27] MEDS ORDERED: HYDROcodone/APAP 5 MG/325 MG (LORTAB) TAB PO ONE (14:15)
[2020-02-27] MEDS ORDERED: CEPHALEXIN 250 MG (KEFLEX) CAP PO ONE (14:15)
[2020-02-27] MEDS ORDERED: HYDR-3870 PO (14:20)
[2020-02-27] MEDS ORDERED: SULF1TAB35 PO (14:20)
--- NOTE | 2020-02-27 14:21 | ED Integumentary General ---
General Stated Complaint: SORE ON STOMACH Source: patient Exam Limitations: no limitations History of Present Illness Date Seen by Provider: February 27, 2020 Time Seen by Provider: 14:16 Initial Comments To ER with a sore to the anterior left lower abdomen. This began 02/21 she awakened with a small red spot. Did not see anything bite her but she suspects a spider bite. This has gotten progressively worse since then. She's had chills. No nausea or vomiting. A friend told her that if she came to the hospital we would "clean it out". She's been expressing drainage from this already at home. Timing/Duration: constant Severity: moderate Possible Cause: no cause identified Associated Symptoms: denies symptoms Allergies and Home Medications Allergies Coded Allergies: No Known Drug Allergies (Unverified , 08/29/16) Home Medications Hydrocodone/Acetaminophen 1 Each Tablet, 1 EACH PO Q4-6HR PRN for PAIN-MODERATE Prescribed by: GHAZALA ALCAZAR on 02/27/20 1420 Mesalamine 1,000 Mg Supp.rect, 1,000 MG RC DAILY At bedtime. Prescribed by: TESSA PASCUAL on 10/16/16 1216 Sulfamethoxazole/Trimethoprim 1 Each Tablet, 1 EACH PO BID Prescribed by: GHAZALA ALCAZAR on 02/27/20 1420 Patient Home Medication List Home Medication List Reviewed: Yes Review of Systems Review of Systems Constitutional: see HPI, chills EENTM: see HPI Respiratory: no symptoms reported Cardiovascular: no symptoms reported Genitourinary: no symptoms reported Musculoskeletal: no symptoms reported Skin: see HPI Psychiatric/Neurological: No Symptoms Reported Endocrine: No Symptoms Reported Past Setjkzz-Xgirez-Ztwdon Hx Patient Social History Recent Foreign Travel: No Contact w/Someone Who Travel: No Recent Hopitalizations: No Immunizations Up To Date Tetanus Booster (TDap): Unknown Past Medical History Adenoidectomy, Ear Surgery, Tonsillectomy Colitis Family Medical History Cancer Physical Exam Vital Signs Vital Signs - First Documented 02/27/20 14:07 Temp 36.8 Pulse 100 Resp 18 B/P (MAP) 113/74 (87) Pulse Ox 100 O2 Delivery Room Air Capillary Refill : General Appearance: WD/WN, no apparent distress HEENT: PERRL/EOMI, normal ENT inspection Respiratory: no respiratory distress, no accessory muscle use Extremities: normal range of motion, non-tender Neurologic/Psychiatric: alert, normal mood/affect, oriented x 3 Skin: normal color, warm/dry Skin Problem Location: other (abdomen. There is a 4 cm circular area of erythema/ecchymosis with purulent drainage from a necrotic center. No lymphangitis. There is some induration but no fluctuance. Advised her that since this is already drinking there is no need to "clean it out".) Skin Problem Character: abscess Procedures/Interventions I&D : Blade Size: 11 Progress Anesthetized locally with lidocaine 1% without epinephrine that was buffered with sodium bicarbonate. 11 blade scalpel was used to widen the draining punctum, curved hemostats were then used to break up any loculations. She did not tolerate this well. Covered with gauze. Progress/Results/Core Measures Results/Orders Lab Results Laboratory Tests Test 02/27/20 14:27 Range/Units White Blood Count 14.8 H 4.3-11.0 10^3/uL Red Blood Count 5.01 4.35-5.85 10^6/uL Hemoglobin 15.2 11.5-16.0 G/DL Hematocrit 44 35-52 % Mean Corpuscular Volume 88 80-99 FL Mean Corpuscular Hemoglobin 30 25-34 PG Mean Corpuscular Hemoglobin Concent 35 32-36 G/DL Red Cell Distribution Width 13.3 10.0-14.5 % Platelet Count 257 130-400 10^3/uL Mean Platelet Volume 9.4 7.4-10.4 FL Neutrophils (%) (Auto) 77 H 42-75 % Lymphocytes (%) (Auto) 16 12-44 % Monocytes (%) (Auto) 6 0-12 % Eosinophils (%) (Auto) 0 0-10 % Basophils (%) (Auto) 0 0-10 % Neutrophils # (Auto) 11.3 H 1.8-7.8 X 10^3 Lymphocytes # (Auto) 2.4 1.0-4.0 X 10^3 Monocytes # (Auto) 0.9 0.0-1.0 X 10^3 Eosinophils # (Auto) 0.0 0.0-0.3 10^3/uL Basophils # (Auto) 0.0 0.0-0.1 10^3/uL My Orders Orders - GHAZALA ALCAZAR APRN Hcg,Qualitative Serum (02/27/20 14:15) Cbc With Automated Diff (02/27/20 14:15) Basic Metabolic Panel (02/27/20 14:15) Hydrocodone/Apap 5/325 Tablet (Lortab 5 (02/27/20 14:15) Sulfamethoxazole/Trimet Ds Tab (Bactrim (02/27/20 14:15) Cephalexin Capsule (Keflex Capsule) (02/27/20 14:15) Lidocaine 1% Inj 20 Ml (Xylocaine 1% Inj (02/27/20 14:30) Sodium Bicarbonate 8.4% Vial (Sodium Bic (02/27/20 14:30) Sodium Bicarbonate 8.4% Vial (Sodium Bic (02/27/20 14:23) Lidocaine 1% Inj 20 Ml (Xylocaine 1% Inj (02/27/20 14:23) Manual Differential (02/27/20 14:27) Medications Given in ED Current Medications Medications Dose Ordered Sig/Chidi Route Start Time Stop Time Status Last Admin Dose Admin Acetaminophen/ Hydrocodone Bitart 1 tab ONCE ONCE PO 02/27/20 14:15 02/27/20 14:17 DC 02/27/20 14:31 1 TAB Cephalexin HCl 500 mg ONCE ONCE PO 02/27/20 14:15 02/27/20 14:17 DC 02/27/20 14:31 500 MG Lidocaine HCl 20 ml ONCE ONCE INJ 02/27/20 14:30 02/27/20 14:31 DC 02/27/20 14:33 20 ML Sodium Bicarbonate 50 meq ONCE ONCE IV 02/27/20 14:30 02/27/20 14:31 DC 02/27/20 14:33 50 MEQ Trimethoprim/ Sulfamethoxazole 1 ea ONCE ONCE PO 02/27/20 14:15 02/27/20 14:17 DC 02/27/20 14:31 1 EA Vital Signs/I&O 02/27/20 14:07 Temp 36.8 Pulse 100 Resp 18 B/P (MAP) 113/74 (87) Pulse Ox 100 O2 Delivery Room Air Departure Impression Primary Impression: Abdominal wall abscess Additional Impression: possible brown recluse bite Disposition: 01 HOME, SELF-CARE Condition: Stable Departure-Patient Inst. Decision time for Depature: 14:19 Referrals: [facility] (PCP/Family) Primary Care Physician Patient Instructions: Skin Abscess Add. Discharge Instructions: 1. Continue to change the dressing as needed to collect any drainage that comes from this. Antibiotics as directed. Follow-up with your doctor on Saturday for recheck. When the pain medication runs out then use Tylenol and ibuprofen for pain control. Scripts Hydrocodone/Acetaminophen (Lorcet 5-325 mg Tablet) 1 Each Tablet 1 EACH PO Q4-6HR PRN for PAIN-MODERATE MDD 10 for 7 Days, #14 TAB Prov: GHAZALA ALCAZAR APRN 02/27/20 Sulfamethoxazole/Trimethoprim (Bactrim Ds Tablet) 1 Each Tablet 1 EACH PO BID, #14 TAB Prov: GHAZALA ALCAZAR APRN 02/27/20 GHAZALA ALCAZAR APRN February 27, 2020 14:20
[2020-02-27] MEDS ORDERED: LIDOCAINE 1% INJ 20 ML 20 ML VIAL ONE (14:23)
[2020-02-27] MEDS ORDERED: SODIUM BICARB 8.4% 50 MEQ/50 ML VIAL ONE (14:23)
[2020-02-27] MEDS ORDERED: SODIUM BICARB 8.4% 50 MEQ/50 ML VIAL IV ONE (14:30)
[2020-02-27] MEDS ORDERED: LIDOCAINE 1% INJ 20 ML 20 ML VIAL INJ ONE (14:30)
[2020-02-27 14:35] LABS: BASOPHILS % (AUTO) 0 % (0-10); EOSINOPHILS % (AUTO) 0 % (0-10); HEMATOCRIT 44 % (35-52); HEMOGLOBIN 15.2 G/DL (11.5-16.0); LYMPHOCYTES # (AUTO) 2.4 X 10^3 (1.0-4.0); LYMPHOCYTES % (AUTO) 16 % (12-44); MEAN CORPUSCULAR HEMOGLOBIN 30 PG (25-34); MEAN CORPUSCULAR HGB CONC 35 G/DL (32-36); MEAN CORPUSCULAR VOLUME 88 FL (80-99); MEAN PLATELET VOLUME 9.4 FL (7.4-10.4); MONOCYTES # (AUTO) 0.9 X 10^3 (0.0-1.0); MONOCYTES % (AUTO) 6 % (0-12); NEUTROPHILS # (AUTO) 11.3 X 10^3 (1.8-7.8); NEUTROPHILS % (AUTO) 77 % (42-75); PLATELET COUNT 257 10^3/uL (130-400); RED CELL DISTRIBUTION WIDTH 13.3 % (10.0-14.5); WHITE BLOOD COUNT 14.8 10^3/uL (4.3-11.0)
[2020-02-27 14:45] LABS: CHLORIDE 104 MMOL/L (98-107); POTASSIUM 3.4 MMOL/L (3.6-5.0); SODIUM 137 MMOL/L (135-145)
[2020-02-27 14:46] LABS: CALCIUM 9.6 MG/DL (8.5-10.1)
[2020-02-27 14:47] LABS: GLUCOSE 102 MG/DL (70-105)
[2020-02-27 14:48] LABS: CARBON DIOXIDE 22 MMOL/L (21-32)
[2020-02-27 14:51] LABS: CREATININE SERUM 0.84 MG/DL (0.60-1.30); GFR ESTIMATED > 60
[2020-02-27 14:52] LABS: BUN/CREATININE RATIO 7
[2020-02-27 14:58] LABS: LYMPHOCYTES % (MANUAL) 16 %; NEUTROPHILS % (MANUAL) 81 %
[2020-02-27 14:59] LABS: MONOCYTES % (MANUAL) 3 %; RBC MORPH NORMAL
[2020-02-27 15:16] VITALS: BP 113/74
== END 2020-02-27 15:16 | disposition home or self-care (01) ==
LOC: EDUNIT# 14:06 → ER 14:07
DX: L02.211 Cutaneous abscess of abdominal wall (principal)
CPT/HCPCS: 10060; 36415; 80048; 84703; 85007; 85027; 87070; 87077; 87186; 87205